=== PATIENT | female | born 1935 | race Caucasian/White ===

== ENCOUNTER 2017-01-04 09:51 | Observation (INO) ==
--- NOTE | 2017-01-04 09:58 | Emergency Department Note ---
Disposition Clinical Impression: Lytic bone lesions on xray, Generalized weakness Disposition: Admitted As Inpatient Condition: Fair Referrals: Cornelius Smith MD [Primary Care Provider] - Forms: Work/School Release, ED Satisfaction Letter Time of Disposition: 12:55 General Adult HPI - General Chief complaint: ED Abdominal Pain Stated complaint: abd pain Time Seen by Provider: 01/04/17 09:53 Source: EMS Mode of arrival: EMS Limitations: no limitations Nursing Notes Reviewed: Yes Vital Signs Reviewed: Yes - History of Present Illness HPI Narrative: 81-year-old who's had a several week history of generalized weakness and some left lower quadrant abdominal pain. Patient was seen by her family doctor yesterday a review of the note indicated that the patient has had PT for this generalized weakness and she is actually gotten worse with respect to the weakness to the point she cannot walk now. She also complains of some left lower quadrant pain that she says is mild in severity. Pt Subjective Complaint: Generalized weakness abdominal pain Onset (ago): week(s) (Several) Location: abdomen Radiation: non-radiation Pain Severity: moderate Pain Scale: 0 Quality: aching Consistency: intermittent Improves with: nothing Worsens with: movement Associated symptoms: Reports: weakness (Generalized). Denies: chest pain, cough , diaphoresis, fever/chills, headaches, nausea/vomiting - Related Data Allergies Allergy/AdvReac Type Severity Reaction Status Date / Time esomeprazole [From Nexium] Allergy Nausea Verified 01/04/17 09:55 Constitutional: Denies: fever, chills, weakness, weight change Eyes: Denies: eye pain, eye discharge, vision change ENT ED: Denies: ear pain, throat pain, dental pain, hearing loss, epistaxis, congestion, dysphagia Cardiovascular: Denies: chest pain, palpitations, dyspnea on exertion, edema, syncope Respiratory: Denies: cough, dyspnea, wheezes, hemoptysis, stridor Gastrointestinal: Reports: abdominal pain. Denies: nausea, vomiting, diarrhea, constipation, hematemesis, melena, hematochezia Genitourinary: Denies: dysuria, frequency, hematuria, discharge Musculoskeletal: Denies: back pain, neck pain, arthralgia, myalgia Integumentary: Denies: rash, abrasion, lesions Neurological: Reports: weakness (Generalized). Denies: headache, numbness, paresthesias, confusion, abnormal gait, vertigo Psychiatric: Denies: anxiety, depression, suicidal thoughts, homicidal thoughts , auditory hallucinations, visual hallucinations Endocrine: Denies: fatigue Hematological/Lymphatic: Denies: easy bleeding, easy bruising Allergic/Immunologic: Denies: facial swelling, urticaria Past Medical History - Past Medical History Medical history: Reports: seizures, other Surgical history: Reports: cholecystectomy, hysterectomy, other Psychiatric history: Reports: anxiety, depression - Social History Smoking Status: Never smoker Smokeless Tobacco Status: No Alcohol use: Reports: none Drug use: Reports: none Physical Exam - General Limitations: no limitations General appearance: alert, in no apparent distress - Head Head exam: atraumatic, normocephalic, normal inspection - Eye Eye exam: Present: normal appearance, PERRL, EOMI - ENT ENT exam: normal exam, normal oropharynx, mucous membranes moist - Neck Neck exam: Present: normal inspection, full ROM, trachea midline - Respiratory Respiratory exam: Present: normal lung sounds bilaterally - Cardiovascular Cardiovascular exam: Present: regular rate, normal rhythm, normal heart sounds - Abdominal Exam Abdominal exam: Present: soft, Non-Tender. Absent: tenderness, distention, guarding, rebound, rigidity - Extremities Exam Extremities exam: Present: normal inspection, full ROM. Absent: tenderness, pedal edema - Expanded Lower Extremity Exam Neurovascular/Tendon exam: Absent: motor deficit, sensory deficit, tendon deficit Gait: not tested/not observed - Back Exam Back exam: Present: normal inspection, full ROM. Absent: tenderness - Neurological Exam Neurological exam: Present: alert, oriented X3. Absent: motor sensory deficit - Psychiatric Psychiatric exam: Present: normal affect, normal mood - Skin Skin exam: Present: warm, dry, intact, normal color Course - Reevaluation(s) Reevaluation #1: Patient comes in with extreme weakness cannot walk does not localize NIH stroke scale is 0 however she's not able to stand up. She does have a lytic lesion on her CT of the head in the skull. Light of her extreme weakness and findings on CT scan we will admit for evaluation. Time: 12:54 - Consultations Consultation #1: I discussed the case with Dr. Hogue who is concerned of possibility of multiple myeloma. Time: 12:53 Consultation #2: Discussed with Dr. Yates, it. Time: 13:15 Vital Signs Temperature 97.5 F L 02/21/17 09:53 Pulse Rate 69 01/04/17 09:53 Respiratory Rate 16 01/04/17 09:53 Blood Pressure 187/87 01/04/17 09:53 O2 Sat by Pulse Oximetry 98 01/04/17 09:53 Temperature 97.5 F L 01/04/17 09:53 Pulse Rate 64 01/04/17 10:47 Respiratory Rate 18 01/04/17 10:47 Blood Pressure 155/62 01/04/17 10:47 O2 Sat by Pulse Oximetry 98 01/04/17 10:47 Oxygen Delivery Oxygen Delivery Room Air Medical Decision Making - Lab Data Lab results reviewed: Yes I reviewed the patient's lab results. Result diagrams: 01/04/17 10:16 01/04/17 10:16 Lab Results 01/04/17 01/04/17 01/04/17 Range/Units 09:57 10:16 10:16 WBC 6.9 (4.3-11.1) K/mcL RBC 4.65 (3.82-4.97) M/mcL Hgb 14.1 (11.5-15.4) g/dL Hct 42.9 (35.3-44.9) % MCV 92.3 (83.0-100.0) fL MCH 30.3 (28.0-33.3) pg MCHC 32.9 (31.6-35.5) g/dL RDW 13.2 (11.5-14.5) % Plt Count 213 (140-400) K/mcL MPV 10.9 (9.4-12.4) fL Immature Gran % 0.3 (0-4) % Seg Neutrophils % 68.1 % Lymphocytes % 23.4 % Monocytes % 6.1 % Eosinophils % 1.5 % Basophils % 0.6 % Neutrophils # 4.7 (1.6-8.9) K/mcL Lymphocytes # 1.6 (0.6-4.6) K/mcL Monocytes # 0.4 (0.0-1.3) K/mcL Eosinophils # 0.1 (0.0-0.6) K/mcL Basophils # 0.0 (0.0-0.2) K/mcL PT 11.2 (9.4-12.1) Seconds INR 1.0 APTT 28.2 (26.0-36.0) Seconds Sodium (136-145) mEq/L Potassium (3.5-4.5) mEq/L Chloride (98-109) mEq/L Carbon Dioxide (19-29) mEq/L BUN (7-20) mg/dL Creatinine (0.57-1.11) mg/dL Est GFR ( Amer) (> 60) Est GFR (Non-Af Amer) (> 60) BUN/Creatinine Ratio (6-26) Glucose (70-99) mg/dL POC Glucose 83 (58-89) Calculated Osmolality (280-300) Lactic Acid (0.5-2.2) mmol/L Calcium (8.6-10.8) mg/dL Total Bilirubin (0.2-1.2) mg/dL Direct Bilirubin (0.0-0.5) mg/dL Indirect Bilirubin (0.0-1.2) mg/dL AST (5-34) Units/L ALT (0-55) Units/L Alkaline Phosphatase (38-126) Units/L Troponin I (0-0.03) ng/mL Serum Total Protein (6.0-8.3) g/dL Albumin (3.5-5.0) g/dL Globulin (2.4-3.5) g/dL Albumin/Globulin Ratio (1.1-2.2) Amylase (25-125) Units/L Lipase (8-78) Units/L Urine Color (Yellow) Urine Clarity (Clear) Urine pH (5.0-8.0) pH Units Ur Specific [place] (1.010-1.025) Urine Protein (Neg-Trace) mg/dL Urine Glucose (UA) (Normal) mg/dL Urine Ketones (Negative) mg/dL Urine Blood (Negative) Urine Nitrite (Negative) Urine Bilirubin (Negative) Urine Urobilinogen (Normal) mg/dL Ur Leukocyte Esterase (Negative) Urine Microscopic RBC (0-3) per hpf Urine Microscopic WBC (0-3) per hpf Ur Squamous Epith Cells (None-Few) per lpf Urine Bacteria (None-Few) per hpf Hyaline Casts (None-Few) per lpf Ur Culture Indicated? (NO) 01/04/17 01/04/17 01/04/17 Range/Units 10:16 10:16 10:16 WBC (4.3-11.1) K/mcL RBC (3.82-4.97) M/mcL Hgb (11.5-15.4) g/dL Hct (35.3-44.9) % MCV (83.0-100.0) fL MCH (28.0-33.3) pg MCHC (31.6-35.5) g/dL RDW (11.5-14.5) % Plt Count (140-400) K/mcL MPV (9.4-12.4) fL Immature Gran % (0-4) % Seg Neutrophils % % Lymphocytes % % Monocytes % % Eosinophils % % Basophils % % Neutrophils # (1.6-8.9) K/mcL Lymphocytes # (0.6-4.6) K/mcL Monocytes # (0.0-1.3) K/mcL Eosinophils # (0.0-0.6) K/mcL Basophils # (0.0-0.2) K/mcL PT (9.4-12.1) Seconds INR APTT (26.0-36.0) Seconds Sodium 141 (136-145) mEq/L Potassium 3.6 (3.5-4.5) mEq/L Chloride 108 (98-109) mEq/L Carbon Dioxide 24 (19-29) mEq/L BUN 22 H (7-20) mg/dL Creatinine 0.74 (0.57-1.11) mg/dL Est GFR ( Amer) > 60 (> 60) Est GFR (Non-Af Amer) > 60 (> 60) BUN/Creatinine Ratio 30 H (6-26) Glucose 98 (70-99) mg/dL POC Glucose (58-89) Calculated Osmolality 295 (280-300) Lactic Acid 0.7 (0.5-2.2) mmol/L Calcium 9.3 (8.6-10.8) mg/dL Total Bilirubin 0.7 (0.2-1.2) mg/dL Direct Bilirubin 0.3 (0.0-0.5) mg/dL Indirect Bilirubin 0.4 (0.0-1.2) mg/dL AST 25 (5-34) Units/L ALT 16 (0-55) Units/L Alkaline Phosphatase 54 (38-126) Units/L Troponin I 0.02 (0-0.03) ng/mL Serum Total Protein 6.5 (6.0-8.3) g/dL Albumin 3.6 (3.5-5.0) g/dL Globulin 2.9 (2.4-3.5) g/dL Albumin/Globulin Ratio 1.2 (1.1-2.2) Amylase 34 (25-125) Units/L Lipase 8 (8-78) Units/L Urine Color (Yellow) Urine Clarity (Clear) Urine pH (5.0-8.0) pH Units Ur Specific [place] (1.010-1.025) Urine Protein (Neg-Trace) mg/dL Urine Glucose (UA) (Normal) mg/dL Urine Ketones (Negative) mg/dL Urine Blood (Negative) Urine Nitrite (Negative) Urine Bilirubin (Negative) Urine Urobilinogen (Normal) mg/dL Ur Leukocyte Esterase (Negative) Urine Microscopic RBC (0-3) per hpf Urine Microscopic WBC (0-3) per hpf Ur Squamous Epith Cells (None-Few) per lpf Urine Bacteria (None-Few) per hpf Hyaline Casts (None-Few) per lpf Ur Culture Indicated? (NO) 01/04/17 Range/Units 12:18 WBC (4.3-11.1) K/mcL RBC (3.82-4.97) M/mcL Hgb (11.5-15.4) g/dL Hct (35.3-44.9) % MCV (83.0-100.0) fL MCH (28.0-33.3) pg MCHC (31.6-35.5) g/dL RDW (11.5-14.5) % Plt Count (140-400) K/mcL MPV (9.4-12.4) fL Immature Gran % (0-4) % Seg Neutrophils % % Lymphocytes % % Monocytes % % Eosinophils % % Basophils % % Neutrophils # (1.6-8.9) K/mcL Lymphocytes # (0.6-4.6) K/mcL Monocytes # (0.0-1.3) K/mcL Eosinophils # (0.0-0.6) K/mcL Basophils # (0.0-0.2) K/mcL PT (9.4-12.1) Seconds INR APTT (26.0-36.0) Seconds Sodium (136-145) mEq/L Potassium (3.5-4.5) mEq/L Chloride (98-109) mEq/L Carbon Dioxide (19-29) mEq/L BUN (7-20) mg/dL Creatinine (0.57-1.11) mg/dL Est GFR ( Amer) (> 60) Est GFR (Non-Af Amer) (> 60) BUN/Creatinine Ratio (6-26) Glucose (70-99) mg/dL POC Glucose (58-89) Calculated Osmolality (280-300) Lactic Acid (0.5-2.2) mmol/L Calcium (8.6-10.8) mg/dL Total Bilirubin (0.2-1.2) mg/dL Direct Bilirubin (0.0-0.5) mg/dL Indirect Bilirubin (0.0-1.2) mg/dL AST (5-34) Units/L ALT (0-55) Units/L Alkaline Phosphatase (38-126) Units/L Troponin I (0-0.03) ng/mL Serum Total Protein (6.0-8.3) g/dL Albumin (3.5-5.0) g/dL Globulin (2.4-3.5) g/dL Albumin/Globulin Ratio (1.1-2.2) Amylase (25-125) Units/L Lipase (8-78) Units/L Urine Color Yellow (Yellow) Urine Clarity Cloudy A (Clear) Urine pH 7.0 (5.0-8.0) pH Units Ur Specific [place] 1.015 (1.010-1.025) Urine Protein Negative (Neg-Trace) mg/dL Urine Glucose (UA) Normal (Normal) mg/dL Urine Ketones Negative (Negative) mg/dL Urine Blood Negative (Negative) Urine Nitrite Negative (Negative) Urine Bilirubin Negative (Negative) Urine Urobilinogen Normal (Normal) mg/dL Ur Leukocyte Esterase Negative (Negative) Urine Microscopic RBC 0-3 (0-3) per hpf Urine Microscopic WBC 0-3 (0-3) per hpf Ur Squamous Epith Cells Few (None-Few) per lpf Urine Bacteria None Seen (None-Few) per hpf Hyaline Casts None Seen (None-Few) per lpf Ur Culture Indicated? NO (NO) - Radiology Data Radiology results reviewed: Yes I reviewed the patient's radiology results. Abdomen/Pelvis CT 01/04/17 09:54 IMPRESSION: Mildly prominent small bowel loops in the left mid abdomen are nonspecific and may indicate enteritis. There is no definite finding of bowel obstruction. No other acute process is suggested D/ / Nain Mendoza MD / Nain Mendoza MD Interpreting Provider: Nain Mendoza MD Head CT 01/04/17 09:54 IMPRESSION: 1. No acute intracranial abnormality. 2. 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 D/ / 01/04/2017 10:45:14 Zack Jack MD / nicolette Interpreting Provider: Zack Jack MD - EKG Data EKG #1 EKG attestation: Yes I reviewed and interpreted this EKG. EKG shows normal: sinus rhythm Rate: normal Rhythm: NSR Interpretation: no acute changes NIH Stroke Scale - Level of Consciousness LOC: Alert - LOC Questions LOC Questions: Answers both correctly - LOC Commands LOC Commands: Performs both correctly - Best Gaze Best Gaze: Normal - Visual Visual: No visual loss - Facial Palsy Facial Palsy: Normal - Motor Arms Motor Arm-Left: No drift for 10 seconds Motor Arm-Right: No drift for 10 seconds - Motor Legs Motor Leg-Left: No drift for 5 seconds Motor Leg-Right: No drift for 5 seconds - Limb Ataxia Limb Ataxia: Normal, No Ataxia - Sensory Sensory: Normal - Best Language Best Language: No aphasia - Dysarthria Dysarthria: Normal - Extinction and Inattention Extinction and Inattention: Normal - NIHSS Total Score NIHSS Total Score: 0 TPA Checklist - Source Information Source: Family - Eligibilty for IV tPA 1. LKW equal to or less than 4.5 hours be before treatment: No - LKW: 3-4.5 hrs Add. Contraindications Patient/family understanding: The patient/family members have been counseled and understood the risk, benefit , and alternatives of treatment.
[2017-01-04 10:27] LABS: Basophils % 0.6 %; Eosinophils # 0.1 K/mcL (0.0-0.6); Eosinophils % 1.5 %; Hematocrit 42.9 % (35.3-44.9); Hemoglobin 14.1 g/dL (11.5-15.4); Immature Granulocytes % 0.3 % (0-4); Lymphocytes # 1.6 K/mcL (0.6-4.6); Lymphocytes % 23.4 %; Mean Corpuscular HGB Conc 32.9 g/dL (31.6-35.5); Mean Corpuscular Hemoglobin 30.3 pg (28.0-33.3); Mean Corpuscular Volume 92.3 fL (83.0-100.0); Mean Platelet Volume 10.9 fL (9.4-12.4); Monocytes # 0.4 K/mcL (0.0-1.3); Monocytes % 6.1 %; Neutrophils # 4.7 K/mcL (1.6-8.9); Platelet Count 213 K/mcL (140-400); Red Blood Count 4.65 M/mcL (3.82-4.97); Red Cell Distribution Width 13.2 % (11.5-14.5); Segmented Neutrophils % 68.1 %
[2017-01-04 10:43] LABS: Alanine Aminotransferase 16 Units/L (0-55); Albumin 3.6 g/dL (3.5-5.0); Albumin/Globulin Ratio 1.2 (1.1-2.2); Alkaline Phosphatase 54 Units/L (38-126); Amylase 34 Units/L (25-125); Aspartate Amino Transferase 25 Units/L (5-34); BUN/Creatinine Ratio 30 (6-26); Bilirubin,Direct 0.3 mg/dL (0.0-0.5); Bilirubin,Indirect 0.4 mg/dL (0.0-1.2); Bilirubin,Total 0.7 mg/dL (0.2-1.2); Blood Urea Nitrogen 22 mg/dL (7-20); Calcium 9.3 mg/dL (8.6-10.8); Carbon Dioxide 24 mEq/L (19-29); Chloride 108 mEq/L (98-109); Globulin 2.9 g/dL (2.4-3.5); Glucose 98 mg/dL (70-99); Lipase 8 Units/L (8-78); Osmolality,Calculated 295 (280-300); Potassium 3.6 mEq/L (3.5-4.5); Sodium 141 mEq/L (136-145); Total Protein 6.5 g/dL (6.0-8.3); eGFR For African Americans > 60 (> 60); eGFR For Non-African Americans > 60 (> 60)
[2017-01-04 10:44] LABS: Prothrombin Time 11.2 Seconds (9.4-12.1)
[2017-01-04 10:47] LABS: Activated Partial Thrombo Time 28.2 Seconds (26.0-36.0)
[2017-01-04 12:34] LABS: Bilirubin,Urine Negative (Negative); Blood,Urine Negative (Negative); Clarity,Urine Cloudy (Clear); Color,Urine Yellow (Yellow); Glucose,Urine (UA) Normal (Normal); Ketones,Urine Negative (Negative); Leukocyte Esterase,Urine Negative (Negative); Nitrite,Urine Negative (Negative); Protein,Urine Negative (Neg-Trace); Specific Gravity,Urine 1.015 (1.010-1.025); Urobilinogen,Urine Normal (Normal)
[2017-01-04 12:38] LABS: Bacteria,Urine None Seen per hpf (None-Few); Hyaline Casts,Urine None Seen per lpf (None-Few); RBC,Urine 0-3 per hpf (0-3); Squamous Epithelial Cell,Urine Few per lpf (None-Few); WBC,Urine 0-3 per hpf (0-3)
[2017-01-04] MEDS ORDERED: Naloxone 0.4 MG/ML INJ IVP PRN (14:12)
[2017-01-04] MEDS ORDERED: Ondansetron 4 MG/2 ML VIAL IVP PRN (14:12)
--- NOTE | 2017-01-04 14:41 | Internal Med History&Physical ---
Date of Encounter: 01/04/17 Time of Encounter: 13:30 Assessment and Plan (1) Lytic bone lesions on xray Current visit: Yes Status: Acute 1 patient's been experiencing increasing weakness. Lytic lesion within the left parietal calvarium has enlarged from 2011 per radiology report. Suspicious for myeloma. We will obtain protein electrophoresis as well as bone scan. 2 consulted oncology (2) Generalized weakness Current visit: Yes Status: Acute 1 this could be multifactorial patient does have history of chronic knee and back pain, as well as suspicion for multiple myeloma. Consulted oncology as well as PT and OT. 2 fall precautions (3) Hypothyroid Current visit: Yes Status: Acute 1 we will obtain TSH continued with Synthroid Qualifiers: Hypothyroidism type: unspecified Qualified Code(s): E03.9 - Hypothyroidism , unspecified (4) DVT prophylaxis Current visit: Yes Status: Acute 1 FELIBERTO trey (5) Occasional tremors Current visit: Yes Status: Acute 1 she has been experiencing tremors off and on for the past few months. She has an appointment with neurology as an outpatient. We will continue with present follow-up and consult neurology as needed. Internal Medicine - H&P: HPI Chief complaint: weakness of lower extremities Admitted From: Emergency Dept Plans for Post Hospital Care: Home History of present illness: Ms. Leon is a 81 year old female past medical history of hypothyroid, seizure , tremors heart disease polymyalgia rheumatica. According to the patient she has been in her usual state of health. She has been experiencing increasing weakness to her lower extremities over the past few months which they attributed to her knee and back pain. She commonly uses a cane to get around however over the past 3 weeks she has been working with physical therapy and transitioning to a walker. According to the family the patient has her good days and bad days where she is more weak and has difficulty ambulating as well as a noticed a softer voice. Today the patient did get up proxy 5:30 this morning to go to the bathroom without difficulty however by 8 AM patient was unable to get out of bed and stand. She was brought to the emergency room for evaluation. In the ER CT of head/brain without contrast did reveal 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 which had enlarged from previous CT in 2011. Lab work was unremarkable as well as EKG and chest x-ray. Patient continued to be unable to stand on her own and she has been admitted for further workup and evaluation. At present time patient is alert oriented following simple commands. It is noted that her voice is very soft she denies any sore throat. Neuro exam is within normal limits extremities 4 with strength 4/5. Cranial nerves II through XII intact. The family states patient has lost approximately 5 pounds in the past week. She denies any fevers chills nausea vomiting chest pain. She did have some abdominal pain upon presentation to the ER however denied any during assessment. She also did have some loose stool last week for 24 hours which resolved on its own. She also admits to some numbness and tingling to her lower extremities. At present time patient is hemodynamically stable.I have reviewed this case with DR Yates who agrees with plan Past Med Surg Social Fam HX - Past Medical History Medical history: seizures, other Psychiatric history: anxiety, depression - Past Surgical History Surgical History: cholecystectomy, hysterectomy, other - Social History Smoking Status: Never smoker Smokeless Tobacco Status: No Alcohol use: none Drug use: none Internal Medicine - H&P: Meds Aspirin 81 mg PO DAILY 01/04/17 [History] Docusate Sodium [Dok] 100 mg PO DAILY PRN 01/04/17 [History] Escitalopram Oxalate 5 mg PO DAILY 01/04/17 [History] Levothyroxine Sodium 100 mcg PO DAILY 01/04/17 [History] Multivit-Min/FA/Lycopen/Lutein [Centrum Silver Tablet] 1 each PO DAILY 01/04/17 [History] Polyethylene Glycol 3350 [MiraLAX] 17 gm PO DAILY PRN 01/04/17 [History] Allergies esomeprazole [From Nexium] Allergy (Verified 01/04/17 09:55) Nausea All Systems PM: A 10-system review of systems was performed and is negative for pertinent findings except as documented above in the HPI. - Constitutional Constitutional: weight loss - EENT Eyes: no change in vision, no discharge, no pain, no photophobia Nose, mouth and throat: change in voice - Cardiovascular Cardiovascular ROS IM: no chest pain, no diaphoresis, no dyspnea, no lightheadedness, no palpitations, no syncope - Respiratory Respiratory: no cough, no dyspnea, no wheezing, no excessive phlegm production - Gastrointestinal Gastrointestinal: abdominal pain, loose stools - Genitourinary Genitourinary: no change in urinary stream, no dysuria, no flank pain, no hematuria - Musculoskeletal Musculoskeletal ROS IM: muscle weakness, numbness, tingling - Neurological Neurological ROS: weakness - Constitutional Vitals: Temp Pulse Resp BP Pulse Ox 97.5 F L 76 16 162/79 95 01/04/17 09:53 01/04/17 13:42 01/04/17 14:30 01/04/17 14:30 01/04/17 13:42 General appearance: Present: A&O X 3, answers questions appropriately Exam: Patient speaks in a whisper - Head Head exam: Present: atraumatic, normocephalic - Eye Eye exam: Present: PERRL, conjuntiva pink, sclera anicteric Pupils: Present: PERRL - Neck Neck exam general surgery: Present: supple, trachea midline. Absent: lymphadenopathy - Respiratory Respiratory exam: Present: CTAB. Absent: accessory muscle use, rales, rhonchi, wheezes - Cardiovascular Cardiovascular exam: Present: RRR, +S1, +S2. Absent: diastolic murmur, gallop, rubs, systolic murmur - GI/Abdominal GI/Abdominal exam: Present: normal bowel sounds, soft, no peritoneal signs. Absent: distended, tenderness - Extremities Exam Extremities exam: Present: warm, radial pulses palpable and symetrical. Absent : calf tenderness, cyanotic, pedal edema - Neurological Exam Neurological exam: Present: CN II-XII intact, oriented X3, no focal deficits. Absent: pronater drift, facial droop, speech deficit Internal Med - H&P Results - Labs CBC & Chem 7: 01/04/17 10:16 01/04/17 10:16 - EKG Data EKG shows normal: sinus rhythm, ST-T waves - EKG Data Prior EKG available for review: no - Diagnostic Studies CT scan - head Additional comments: Per radiology read no acute intracranial abnormality. Lytic lesion within the left parietal calvarium has enlarged from 2011 revealing suspicious for metastasis given the abnormal uptake on prior bone scan. CT scan - abdomen Additional comments: Per radiology read mildly prominent small bowel loops in the left mid abdomen are nonspecific and may indicate enteritis. There is no definite finding of bowel obstruction. No other acute products also suggested
[2017-01-05 04:23] LABS: Basophils % 0.6 %; Eosinophils # 0.2 K/mcL (0.0-0.6); Eosinophils % 2.3 %; Hematocrit 41.8 % (35.3-44.9); Hemoglobin 13.7 g/dL (11.5-15.4); Immature Granulocytes % 0.1 % (0-4); Lymphocytes # 1.7 K/mcL (0.6-4.6); Lymphocytes % 24.7 %; Mean Corpuscular HGB Conc 32.8 g/dL (31.6-35.5); Mean Corpuscular Hemoglobin 30.2 pg (28.0-33.3); Mean Corpuscular Volume 92.1 fL (83.0-100.0); Monocytes # 0.5 K/mcL (0.0-1.3); Monocytes % 7.7 %; Neutrophils # 4.5 K/mcL (1.6-8.9); Platelet Count 183 K/mcL (140-400); Red Blood Count 4.54 M/mcL (3.82-4.97); Red Cell Distribution Width 13.1 % (11.5-14.5); Segmented Neutrophils % 64.6 %
[2017-01-05 04:39] LABS: BUN/Creatinine Ratio 34 (6-26); Blood Urea Nitrogen 25 mg/dL (7-20); Calcium 9.1 mg/dL (8.6-10.8); Carbon Dioxide 24 mEq/L (19-29); Chloride 108 mEq/L (98-109); Glucose 102 mg/dL (70-99); Osmolality,Calculated 297 (280-300); Potassium 3.5 mEq/L (3.5-4.5); Sodium 141 mEq/L (136-145); eGFR For African Americans > 60 (> 60); eGFR For Non-African Americans > 60 (> 60)
[2017-01-05] MEDS: Acetaminophen 325 MG TABLET PO PRN (06:40)
[2017-01-05] MEDS ORDERED: *HR* Morphine 2 MG/ML SYRINGE IVP PRN (08:12)
[2017-01-05] MEDS: Multivit/Ca/Min/Fe/FA 1 TAB TABLET PO SCH (08:48)
[2017-01-05] MEDS: Aspirin 81 MG TAB.CHEW PO SCH (08:53)
--- NOTE | 2017-01-05 14:56 | Internal Med Progress Note ---
Date of Encounter: 01/05/17 Time of Encounter: 10:00 - Assessment and plan (1) Generalized weakness Current Visit: Yes Status: Acute Assessment and plan: OT and PT are on board. Causation of her generalized weakness is unclear at this time. No focal neurological weakness is present on examination the patient was unable to change positions in bed or to feed herself without assistance. No tremors present on examination. Destaticizer Feeder strength equal. Postpolio : Bilateral legs. Suspect possible secondary gain and attention seeking behavior. Spoke to the patient's sister outside of the room he states that the patient was in occupational and physical therapy and when she was told that she would be graduating from therapy, she started to decline and state that she was too weak to walk. Her sister also states that "if she had her way, she'd lay and watch TV all day and me and my would do everything for her." During my interaction with her, patient asked if I could reposition her in the bed several times. She also asked for assistance with drinking, feeding, and pulling up her covers. She appears physically able to perform these tasks independently, but is choosing noted to do so. She did have a PET CT in September of this past year and she was seen by her health care coach shortly thereafter. I cannot find any documentation of her seeing a primary care provider for the PET/CT results. PET/CT appears unremarkable, oncology on board, appreciate their recommendations. Head CT negative for acute process and revealing a lytic lesion in the left parietal calvarium, oncology on board. Bone survey unremarkable. ITS Impressions Abdomen/Pelvis CT 01/04/17 09:54 IMPRESSION: Mildly prominent small bowel loops in the left mid abdomen are nonspecific and may indicate enteritis. There is no definite finding of bowel obstruction. No other acute process is suggested D/ / Nain Mendoza MD / Nain Mendoza MD Interpreting Provider: Nain Mendoza MD Head CT 01/04/17 09:54 IMPRESSION: 1. No acute intracranial abnormality. 2. 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 D/ / 01/04/2017 10:45:14 Zack Jack MD / [facility] Interpreting Provider: Zack Jack MD Bone Osseous Survey 01/04/17 14:31 IMPRESSION: 1. Solitary left posterior parietal 2.9 cm lytic calvarial lesion which corresponds with the prior head CT. There are no disseminated osseous lytic lesions. 2. Decreased bone mineral density. Multilevel spine degenerative changes. No acute osseous abnormality. D/ / 01/05/2017 06:04:58 Angelito Cheney MD / [facility] Interpreting Provider: Angelito Cheney MD /PET CT fusion skull to thigh impression from 10/06/16: Minimal metabolic activity associated with left upper lobe pulmonary nodule, stable and CT appearance since 02/26/16. This could represent an infectious/inflammatory process or possibly low-grade neoplasm. No definite metabolic activity localizing to a soft tissue prominence along the upper pole of the left kidney which may represent a proteinaceous cyst. Consider further evaluation of this with a CT scan of the abdomen with and without contrast or MRI of the kidneys with and without contrast to ensure no enhancing mass. (2) Abnormal head CT Current Visit: Yes Status: Acute (3) Occasional tremors Current Visit: Yes Status: Chronic Assessment and plan: none noted on examination; Onc onboard (4) Dependent for activity Current Visit: Yes Status: Suspected (5) Abdominal pain Current Visit: Yes Status: Acute Assessment and plan: Patient currently denies abdominal pain. Abdominal CT unremarkable as her physical examination is not consistent with enteritis. Tolerating regular diet. On examination, abdomen soft, nondistended with positive bowel sounds. No tenderness. ITS Impressions Abdomen/Pelvis CT 01/04/17 09:54 IMPRESSION: Mildly prominent small bowel loops in the left mid abdomen are nonspecific and may indicate enteritis. There is no definite finding of bowel obstruction. No other acute process is suggested D/ / Nain Mendoza MD / Nain Mendoza MD Interpreting Provider: Nain Mendoza MD Qualifiers: Abdominal location: generalized Qualified Code(s): R10.84 - Generalized abdominal pain (6) DVT prophylaxis Current Visit: Yes Status: Acute Assessment and plan: Subcutaneous Lovenox ordered (7) Hypothyroid Current Visit: Yes Status: Chronic Assessment and plan: TSH normal Qualifiers: Hypothyroidism type: unspecified Qualified Code(s): E03.9 - Hypothyroidism , unspecified - Time Spent With Patient Greater than 35 minutes (chart review and interviewing patient and family) - Subjective Interval history: Patient seen and examined. On examination, patient alert and oriented x3 and complained of severe pain to her back. She states she started with a "knot" in her back yesterday. She denies dysuria. She states she still feels weak. She is requesting assistance repositioning her in the bed and she is also requesting assistance eating her breakfast. - Constitutional Vitals: Temp Pulse Resp BP Pulse Ox 97.6 F 73 15 146/78 97 01/05/17 11:47 01/05/17 11:47 01/05/17 11:47 01/05/17 11:47 01/05/17 11:47 General appearance: Present: A&O X 3, pleasant, no acute distress, answers questions appropriately - Head Head exam: Present: atraumatic, normocephalic - Eye Eye exam: Present: PERRL, conjuntiva pink, sclera anicteric Pupils: Present: PERRL - Neck Neck exam general surgery: Present: supple, trachea midline. Absent: lymphadenopathy - Respiratory Respiratory exam: Present: CTAB. Absent: accessory muscle use, rales, respiratory distress, rhonchi, wheezes - Cardiovascular Cardiovascular exam: Present: RRR, +S1, +S2. Absent: diastolic murmur, gallop, rubs, systolic murmur - GI/Abdominal GI/Abdominal exam: Present: normal bowel sounds, soft, no peritoneal signs. Absent: distended, tenderness - Extremities Exam Extremities exam: Present: warm, radial pulses palpable and symetrical. Absent : calf tenderness, cyanotic, pedal edema - Back Exam Back exam: Present: muscle spasm, paraspinal tenderness - Neurological Exam Neurological exam: Present: alert, CN II-XII intact, oriented X3, no focal deficits, strengths equal and symetr throughout. Absent: pronater drift, facial droop, speech deficit - Skin Skin exam: Present: dry, intact, pallor, warm Internal Medicine: Result - Labs CBC & Chem 7: 01/05/17 03:51 01/05/17 03:51 Labs: Short CBC 01/05/17 Range/Units 03:51 WBC 7.0 (4.3-11.1) K/mcL Hgb 13.7 (11.5-15.4) g/dL Hct 41.8 (35.3-44.9) % Plt Count 183 (140-400) K/mcL Neutrophils # 4.5 (1.6-8.9) K/mcL BMP 01/05/17 03:51 Sodium 141 Potassium 3.5 Chloride 108 Carbon Dioxide 24 BUN 25 H Creatinine 0.73 Glucose 102 H Calcium 9.1 - ABG Interpretation ABG results: PT/INR, D-dimer PT 11.2 Seconds (9.4-12.1) 01/04/17 10:16 - Impressions Impressions Bone Osseous Survey 01/04/17 14:31 IMPRESSION: 1. Solitary left posterior parietal 2.9 cm lytic calvarial lesion which corresponds with the prior head CT. There are no disseminated osseous lytic lesions. 2. Decreased bone mineral density. Multilevel spine degenerative changes. No acute osseous abnormality. D/ / 01/05/2017 06:04:58 Angelito Cheney MD / [email or web address] Interpreting Provider: Angelito Cheney MD Consult Discharge Plan - Plan Referrals: Cornelius Smith MD [Primary Care Provider] -
[2017-01-05] MEDS: *HR* HYDROcodone/Acet 5/325 mg TABLET PO PRN (17:34)
[2017-01-06] MEDS: *HR* Enoxaparin 40 MG/0.4 ML SYRINGE SQ SCH (06:30)
[2017-01-06] MEDS: *HR* HYDROcodone/Acet 5/325 mg TABLET PO PRN (06:41)
[2017-01-06] MEDS: Multivit/Ca/Min/Fe/FA 1 TAB TABLET PO SCH (08:21)
[2017-01-06] MEDS: Aspirin 81 MG TAB.CHEW PO SCH (08:21)
--- NOTE | 2017-01-06 14:50 | Oncology Inp Consult Note ---
Date of Encounter: 01/05/17 Time of Encounter: 19:00 Assessment and Plan (1) Generalized weakness Status: Acute Assessment and plan: Generalized weakness is concerning. She may benefit from neurology opinion. Her nor MRI brain with and without contrast That will evaluate the lytic lesion in the parietal bone is well (2) Lytic bone lesions on xray Status: Acute Assessment and plan: Currently no evidence to suggest multiple myeloma. The lesion does not appear to have the characteristic of plasmacytoma either. Discussed at the tumor board on 01/06/2017. Given that it dids not increase that much since 2010, favor a benign etiology. There is also no evidence of systemic malignancy. CT abdomen and pelvis negative during this admission. Left lung nodule has been stable as mentioned. If necessary repeat CT chest MRI brain with and without contrast should evaluate that better and may give a clue on her generalized weakness - Data of Consult Requesting Physician: Lucero Carl Primary Care Provider: Cornelius Smith MD - Consult Narrative Reason for consult: Lytic lesion left parietal bone History of present illness: Ms. Leon is a 81 year old female admitted with increasing weakness. He has no focal deficit but feels weak all over. He claims she moved in with her sister one year ago because she could not maintain independent living. But she is able to function at that time and in the last 2 months or so which even hard for her to walk. She is mentally very competent and able to answer questions She is on sign of metastases and may have underlying Parkinson's disease. No obvious tremors Oncology consulted because of enlarging lytic type lesion left posterior parietal bone 2.[address] chest during this admission. I compared this to the CAT scan done on 2010 and at that time she had the same lesion but slightly smaller She has a bone survey 01/04/2017 which did not show any other lesion Multiple myeloma has to be ruled out. No CRAB criteria. The normal at 13.7 glucose 102. Creatinine 0.73 calcium 9.1 She had a left pleural based 1.2 cm lung nodule followed by Dr. Chino. PET scan 09/17/2016 did not show major uptake in that nodule. Has been stable since February 2016. That spot was biopsied under CT guidance on 03/23/2016 collagen showed fibrous tissue and lung parenchyma but no malignancy PET scan also showed left kidney proteinaceous cyst with no major PET uptake. This was reviewed at the tumor board on 01/06/2017 TT abdomen and pelvis negative 01/04/2017 for malignant process Serum protein electrophoresis and light chains pending but globulin normal at 2.9. Past Med Surg Social Fam HX - Past Medical History Medical history: seizures, other Psychiatric history: anxiety, depression - Past Surgical History Surgical History: cholecystectomy, hysterectomy, other - Social History Smoking Status: Never smoker Smokeless Tobacco Status: No Alcohol use: none Drug use: none - Family History Father Hx Family Cardiac Disorders: Yes Brother Hx Family Cancer: Yes (lung Ca) Medications and Allergies Aspirin 81 mg PO DAILY 01/04/17 [History] Docusate Sodium [Dok] 100 mg PO DAILY PRN 01/04/17 [History] Escitalopram Oxalate 5 mg PO DAILY 01/04/17 [History] Levothyroxine Sodium 100 mcg PO DAILY 01/04/17 [History] Multivit-Min/FA/Lycopen/Lutein [Centrum Silver Tablet] 1 each PO DAILY 01/04/17 [History] Polyethylene Glycol 3350 [MiraLAX] 17 gm PO DAILY PRN 01/04/17 [History] Allergies esomeprazole [From Nexium] Allergy (Verified 01/04/17 09:55) Nausea Review of systems: In increased generalized weakness is the main complaint but no focal neurological deficit. Oncology - Exam - Constitutional Vitals: Temp Pulse Resp BP Pulse Ox 97.8 F 75 16 128/79 95 01/06/17 11:59 01/06/17 11:59 01/06/17 11:59 01/06/17 11:59 01/06/17 11:59 General appearance: no acute distress Exam: GENERAL: Alert and oriented, well appearing. Mental Status: Affect appropriate for circumstances HEENT: Sclerae anicteric. No mucositis or thrush. No other oral or pharyngeal lesions or erythema. Skin: No rashes or petechiae. No evidence of skin malignancy Lymph nodes: No cervical, supraclavicular, axillary, or inguinal adenopathy. Lungs: Clear to auscultation and percussion bilaterally. Cardiovascular: Regular rate and rhythm. No gallops, murmurs, or rubs. Abdomen: Soft, nontender; no organomegaly or masses palpable. Extremities: No edema. No calf swelling or tenderness. No joint deformity. Neurologic: Alert, cranial nerves II-XII intact;; no focal weakness or sensory abnormalities. She does have mild weakness both lower extremities Upper extremity strength seems to be okay but she does have trouble walking by history [id number] coordination normal and no major tremors Consult Discharge Plan - Plan Referrals: Cornelius Smith MD [Primary Care Provider] -
--- NOTE | 2017-01-06 15:17 | Physician Discharge Referral ---
ExtendedCare Referral Info Transfer To: [facility] Provider in Charge after Transfer: PCP Institutional Level of Care: Skilled - Diagnosis (1) Parkinson disease Priority: Primary Status: Acute (2) Generalized weakness Priority: Primary Status: Acute (3) Lytic bone lesions on xray Priority: Secondary Status: Acute Expected Duration of Placement: less than 30 days Prognosis: Good Aware of Diagnosis: Patient Aware of Prognosis: Patient - Transfer Medications Prescriptions: Buspirone HCl [Buspar] 7.5 mg PO BID PRN #60 tablet PRN Reason: Anxiety Carbidopa/Levodopa 10/100 [Sinemet 10/100] 1 each PO TID #90 tablet Home Medications: Aspirin 81 mg PO DAILY 01/04/17 [History] Docusate Sodium [Dok] 100 mg PO DAILY PRN 01/04/17 [History] Escitalopram Oxalate 5 mg PO DAILY 01/04/17 [History] Levothyroxine Sodium 100 mcg PO DAILY 01/04/17 [History] Multivit-Min/FA/Lycopen/Lutein [Centrum Silver Tablet] 1 each PO DAILY 01/04/17 [History] Polyethylene Glycol 3350 [MiraLAX] 17 gm PO DAILY PRN 01/04/17 [History] Buspirone HCl [Buspar] 7.5 mg PO BID PRN #60 tablet 01/06/17 [Rx] Carbidopa/Levodopa 10/100 [Sinemet 10/100] 1 each PO TID #90 tablet 01/06/17 [Rx ] Allergies/Adverse Reactions: Allergies esomeprazole [From Nexium] Allergy (Verified 01/04/17 09:55) Nausea - Respiratory Orders Smoking Cessation: Smoking cessation has been advised. For more information, call the [place] Tobacco Quit Line at 2-832-QKIP-NOW. - Mobility Orders Ambulate - Rehabiliation Orders Rehab Orders: Evaluation for Physical Therapy, Evaluation for Occupational Therapy - Diet Orders Regular CERTIFICATION: I certify that the transfer of the above named patient to an Extended Care Facility is necessary for the continuing treatment of the diagnosis listed. The above information is true and accurate reflection of patient's current condition. Confidential - Redisclosure prohibited without a patient's written consent.
--- NOTE | 2017-01-06 16:23 | Internal Med Progress Note ---
Date of Encounter: 01/06/17 Time of Encounter: 11:45 - Assessment and plan (1) Parkinson disease Current Visit: Yes Status: Acute (2) Generalized weakness Current Visit: Yes Status: Acute (3) Lytic bone lesions on xray Current Visit: Yes Status: Acute - Time Spent With Patient Plan Appreciate oncology input, no evidence of malignancy, awaiting results for MRI brain , I was able to walk with patient with assistance physical therapy. Patient had shuffling gait, freezing episode,static tremors,cog wheel rigidity, will start Sinemet as diagnostic and therapeutic trial. Discussed with Rehab team , will reevaluate , will add Buspar as augmenting agent for SSRI. 25 - 35 minutes - Subjective Interval history: atient complains of generalized weakness, shuffling gait,is static tremors, feeling of falling, patient feels down - Constitutional Vitals: Temp Pulse Resp BP Pulse Ox 97.8 F 75 16 128/79 95 01/06/17 11:59 01/06/17 11:59 01/06/17 11:59 01/06/17 11:59 01/06/17 11:59 General appearance: Present: pleasant, no acute distress, answers questions appropriately - Neck Neck exam general surgery: Present: supple, trachea midline. Absent: lymphadenopathy - Respiratory Respiratory exam: Present: CTAB. Absent: accessory muscle use, rales, rhonchi, wheezes - Cardiovascular Cardiovascular exam: Present: RRR, +S1, +S2. Absent: diastolic murmur, gallop, rubs, systolic murmur - Extremities Exam Extremities exam: Present: warm, radial pulses palpable and symetrical. Absent : calf tenderness, cyanotic, pedal edema - Neurological Exam Neurological exam: Present: CN II-XII intact, oriented X3, no focal deficits. Absent: pronater drift, facial droop, speech deficit Internal Medicine: Result - Labs CBC & Chem 7: 01/05/17 03:51 01/05/17 03:51 - ABG Interpretation ABG results: PT/INR, D-dimer PT 11.2 Seconds (9.4-12.1) 01/04/17 10:16 - VTE Documentation of Mechanical Device: Intermittent pneumatic compression device Consult Discharge Plan - Plan Referrals: Cornelius Smith MD [Primary Care Provider] - Prescriptions: Buspirone HCl [Buspar] 7.5 mg PO BID PRN #60 tablet PRN Reason: Anxiety Carbidopa/Levodopa [Sinemet ] 1 each PO TID #90 tablet
[2017-01-07] MEDS: *HR* Enoxaparin 40 MG/0.4 ML SYRINGE SQ SCH (06:11)
--- NOTE | 2017-01-07 06:58 | Electrocardiograph Report ---
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
--- NOTE | 2017-01-07 08:58 | Internal Med Progress Note ---
Date of Encounter: 01/07/17 Time of Encounter: 07:45 - Assessment and plan (1) Parkinson disease Current Visit: Yes Status: Acute (2) Generalized weakness Current Visit: Yes Status: Acute (3) Lytic bone lesions on xray Current Visit: Yes Status: Acute - Time Spent With Patient mild improvement with starting small dose of Aricept. We will consult neurology for further evaluation. Continue physical therapy and occupational therapy. awaiting results of vitamin B12 and vitamin D. Possible discharge in next 24 hours attending awaiting Neurology input.check magnesium and potassium phosphorus 25 - 35 minutes - Subjective Interval history: patient continued to have trouble with walking,has freezing episodes, fear of falling. Patient denies any pain. Patient was able to stand and walk a few steps. Shuffling gait, static tremors better than yest - Constitutional Vitals: Temp Pulse Resp BP Pulse Ox 97.5 F L 68 15 143/96 98 01/07/17 06:45 01/07/17 06:45 01/07/17 06:45 01/07/17 06:45 01/07/17 06:45 General appearance: Present: A&O X 3, pleasant, no acute distress, answers questions appropriately - Head Head exam: Present: atraumatic, normocephalic - Neck Neck exam general surgery: Present: supple, trachea midline. Absent: lymphadenopathy - Respiratory Respiratory exam: Present: CTAB. Absent: accessory muscle use, rales, rhonchi, wheezes - Cardiovascular Cardiovascular exam: Present: RRR, +S1, +S2. Absent: diastolic murmur, gallop, rubs, systolic murmur - GI/Abdominal GI/Abdominal exam: Present: normal bowel sounds, soft, no peritoneal signs. Absent: distended, tenderness - Extremities Exam Extremities exam: Present: warm. Absent: cyanotic, pedal edema - Neurological Exam Neurological exam: Present: abnormal gait, CN II-XII intact, oriented X3, no focal deficits. Absent: pronater drift, facial droop, speech deficit Internal Medicine: Result - Labs CBC & Chem 7: 01/05/17 03:51 01/05/17 03:51 - ABG Interpretation ABG results: PT/INR, D-dimer PT 11.2 Seconds (9.4-12.1) 01/04/17 10:16 - Impressions Impressions Head MRI 01/06/17 15:22 IMPRESSION: 1. No acute intracranial abnormality. 2. Moderate chronic white matter microvascular ischemic changes. 3. 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 Marginal enhancement as seen in this lesion can be seen in large arachnoid granulations, however the enlargement in a patient of this age is somewhat atypical and malignancy cannot be completely excluded. Recommend follow-up brain MRI in 6 months to 1 year to ensure stability. D/ / Cornelius Fitzgerald MD / Cornelius Fitzgerald MD Interpreting Provider: Cornelius Fitzgerald MD - VTE Documentation of Mechanical Device: Graduated compression elastic hosiery Consult Discharge Plan - Plan Referrals: Cornelius Smith MD [Primary Care Provider] - Prescriptions: Buspirone HCl [Buspar] 7.5 mg PO BID PRN #60 tablet PRN Reason: Anxiety Carbidopa/Levodopa 10/100 [Sinemet 10/100] 1 each PO TID #90 tablet Impression 1) Normal left ventricular size and systolic function. LVEF 60%. All myocardial segments display normal contractility. Late gadolinium enhancement imaging demonstrates normal myocardium. 2) Normal right ventricular size and systolic function. 3) No significant valvular dysfunction. 4) Non-cardiac structures visualized during this study will be independently reviewed by a radiologist. Please see the separate radiology report for details.
[2017-01-07] MEDS: Aspirin 81 MG TAB.CHEW PO SCH (09:53)
[2017-01-07] MEDS: Multivit/Ca/Min/Fe/FA 1 TAB TABLET PO SCH (09:53)
[2017-01-07 10:00] LABS: BUN/Creatinine Ratio 24 (6-26); Blood Urea Nitrogen 18 mg/dL (7-20); Calcium 9.4 mg/dL (8.6-10.8); Carbon Dioxide 24 mEq/L (19-29); Chloride 107 mEq/L (98-109); Glucose 129 mg/dL (70-99); Magnesium 1.8 mg/dL (1.6-2.6); Osmolality,Calculated 294 (280-300); Phosphorous 2.5 mg/dL (2.3-4.7); Potassium 3.9 mEq/L (3.5-4.5); Sodium 140 mEq/L (136-145); eGFR For African Americans > 60 (> 60); eGFR For Non-African Americans > 60 (> 60)
[2017-01-07] MEDS: Thiamine (B-1) 100 MG TABLET PO SCH (10:05)
[2017-01-07] MEDS: Acetaminophen 325 MG TABLET PO PRN (10:05)
--- NOTE | 2017-01-07 10:10 | Physician Discharge Referral ---
ExtendedCare Referral Info Provider in Charge after Transfer: PCP Institutional Level of Care: Intermediate - MR - Diagnosis (1) Parkinson disease Status: Acute (2) Generalized weakness Priority: Secondary Status: Acute (3) Lytic bone lesions on xray Priority: Secondary Status: Acute Prognosis: Good Aware of Diagnosis: Patient Aware of Prognosis: Patient - Transfer Medications Prescriptions: Buspirone HCl [Buspar] 7.5 mg PO BID PRN #60 tablet PRN Reason: Anxiety Carbidopa/Levodopa 10/100 [Sinemet 10/100] 1 each PO TID #90 tablet Home Medications: Aspirin 81 mg PO DAILY 01/04/17 [History] Docusate Sodium [Dok] 100 mg PO DAILY PRN 01/04/17 [History] Escitalopram Oxalate 5 mg PO DAILY 01/04/17 [History] Levothyroxine Sodium 100 mcg PO DAILY 01/04/17 [History] Multivit-Min/FA/Lycopen/Lutein [Centrum Silver Tablet] 1 each PO DAILY 01/04/17 [History] Polyethylene Glycol 3350 [MiraLAX] 17 gm PO DAILY PRN 01/04/17 [History] Buspirone HCl [Buspar] 7.5 mg PO BID PRN #60 tablet 01/06/17 [Rx] Carbidopa/Levodopa 10/100 [Sinemet 10/100] 1 each PO TID #90 tablet 01/06/17 [Rx ] Allergies/Adverse Reactions: Allergies esomeprazole [From Nexium] Allergy (Verified 01/04/17 09:55) Nausea - Respiratory Orders Smoking Cessation: Smoking cessation has been advised. For more information, call the [place] Tobacco Quit Line at 5-081-RMHX-NOW. - Rehabiliation Orders Rehab Orders: Evaluation for Physical Therapy, Evaluation for Occupational Therapy CERTIFICATION: I certify that the transfer of the above named patient to an Extended Care Facility is necessary for the continuing treatment of the diagnosis listed. The above information is true and accurate reflection of patient's current condition. Confidential - Redisclosure prohibited without a patient's written consent.
[2017-01-07 11:20] LABS: Kappa Qnt Free Light Chains 1.8 mg/dL (0.33-1.94); Lambda Qnt Free Light Chains 1.21 mg/dL (0.57-2.63)
--- NOTE | 2017-01-07 16:05 | Electrocardiograph Report ---
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
--- NOTE | 2017-01-07 16:08 | Neurology - Consult Note ---
Date of Encounter: 01/07/17 Time of Encounter: 16:08 Assessment and Plan (1) Parkinson disease Current Visit: Yes Status: Acute Agree that the patient has some atypical features of Parkinson's disease, mainly in the form of increased muscle tone, diffusely, without unilateral preference. I did not notice any unilateral rest tremors although shaking was mentioned as one of her complaint. Plus, she did not respond to dopa therapy favorably. Symptoms appear acute onset which is also not typical for Idiopathic Parkinson's disease. (2) Difficulty walking Current Visit: Yes Status: Acute So, with the impression that she does have atypical Parkinson's features not responding to dopa therapy, with the findings of brisk DTRs, muscle rigidity, bilateral leg weakness, and difficulty walking, another consideration would be cervical myelopathy. I saw no signs of ALS or other motor neuron disease. spastic spinal paraplegia can give similar presentation but is a diagnosis of exclusion. Will obtain MRI of cervical spine without contrast. Patient is to get PT and gait training He is to follow up with Dr. Tl Tomlinson as scheduled. History of Present Illness Chief complaint: difficulty walking HPI: Ms. Leon is a 81 year old female with PMH significant for HTN, GERD, hyperlipidemia and possible Parkinson's disease who is consulted regarding acute onset of difficulty walking weakness in her legs, and possible Parkinson' s disease. Patient says that she she saw her PCP on Tuesday due to weakness not helped from PT and she was also referred to Dr. Tl Tomlinson for evaluation for possible Parkinson's disease. She says that she does have some difficulty walking that has been going on for quite a while. She has some shakings going on but i saw no unilateral tremors at the bed side. She says that on Tuesday she woke up and she could not get out of bed. She did not feel that she is getting better. She has taken carbidopa/levodopa for few days and that does not seem to help her. Unable to stand up without assistance. Able to move with struggle and scare tiny steps. Past Med Surg Social Fam HX - Past Medical History Medical history: seizures, other Psychiatric history: anxiety, depression - Past Surgical History Surgical History: cholecystectomy, hysterectomy, other - Social History Smoking Status: Never smoker Smokeless Tobacco Status: No Alcohol use: none Drug use: none - Family History Father Hx Family Cardiac Disorders: Yes Brother Hx Family Cancer: Yes (lung Ca) Medications and Allergies Aspirin 81 mg PO DAILY 01/04/17 [History] Docusate Sodium [Dok] 100 mg PO DAILY PRN 01/04/17 [History] Escitalopram Oxalate 5 mg PO DAILY 01/04/17 [History] Levothyroxine Sodium 100 mcg PO DAILY 01/04/17 [History] Multivit-Min/FA/Lycopen/Lutein [Centrum Silver Tablet] 1 each PO DAILY 01/04/17 [History] Polyethylene Glycol 3350 [MiraLAX] 17 gm PO DAILY PRN 01/04/17 [History] Buspirone HCl [Buspar] 7.5 mg PO BID PRN #60 tablet 01/06/17 [Rx] Carbidopa/Levodopa 10/100 [Sinemet 10/100] 1 each PO TID #90 tablet 01/06/17 [Rx ] Allergies esomeprazole [From Nexium] Allergy (Verified 01/04/17 09:55) Nausea All Systems: A 10-system review of systems was performed and is negative for pertinent findings except as documented above in the HPI. Physical Examination - Vital Signs Vital Signs: Initial Vital Signs Temp Pulse Resp BP Pulse Ox 97.5 F L 69 16 187/87 98 01/04/17 09:53 01/04/17 09:53 01/04/17 09:53 01/04/17 09:53 01/04/17 09:53 - Constitutional General appearance: comfortable - Neurologic Sensorimotor examination: intact Detailed motor examination: grossly full strength in all extremities, other ( The weakness in legs, only manifest when she tried to get up and has diffiuclty getting up without support. Able to maintain posture but unable to able, except small steps) Motor examination - right side: 5/5: deltoids, biceps, triceps, wrist flexion, wrist extension, stacker and sorter operator, hip flexors, tibialis Anterior, quadriceps, toe extension (EHL), plantarflexion Motor examination - left side: 5/5: deltoids, biceps, triceps, wrist flexion, wrist extension, hip flexors, stacker and sorter operator, quadriceps, tibialis Anterior, toe extension (EHL), plantarflexion Detailed sensory examination: intact Reflex and gait examination: other (Unable to move without assistance. Tiny steps observed) Reflexes: Biceps: 2+, Triceps: 2+, Brachioradialis: 2+, Patella: 2+, Achilles: 2 + Mental Status Examination: awake, alert, oriented to person, oriented to place, oriented to time, follows commands appropriately, answers questions appropriately, no agnosia, no aphasia, no aproxia Cranial nerve examination: PERRL, EOMI, visual poon intact, corneal reflexes brisk symmetrically, sensory to face intact, mastication intact, no facial asymmetry is present, no dysarthria, hearing is intact symmetrically, soft palate elevates bilaterally upon phonation, gag reflex intact, flexes SCM and trapezius muscles symmetrically with full power, tongue protrudes midline, no atrophy or facial fasiculations present Results - Laboratory Findings CBC and BMP: 01/05/17 03:51 01/07/17 09:18 Abnormal lab findings: Abnormal lab results ESR 21 mm/hr (0-15) H 01/07/17 09:18 Glucose 129 mg/dL (70-99) H 01/07/17 09:18 Urine Clarity Cloudy (Clear) A 01/04/17 12:18 Consult Discharge Plan - Plan Referrals: Cornelius Smith MD [Primary Care Provider] - Shai Acosta MD [Partnered Physician] - 01/20/17 3:10 pm Prescriptions: Buspirone HCl [Buspar] 7.5 mg PO BID PRN #60 tablet PRN Reason: Anxiety Carbidopa/Levodopa 10/100 [Sinemet 10/100] 1 each PO TID #90 tablet
[2017-01-07 21:20] LABS: Alpha 2 Globulin (PEP) 0.84 g/dL (0.48-1.05); Beta Globulin (PEP) 0.72 g/dL (0.48-1.10)
[2017-01-08] MEDS: *HR* Enoxaparin 40 MG/0.4 ML SYRINGE SQ SCH (06:25)
[2017-01-08 07:12] LABS: IFE Reflexed NOT DONE
[2017-01-08] MEDS: Multivit/Ca/Min/Fe/FA 1 TAB TABLET PO SCH (10:23)
[2017-01-08] MEDS: *HR* HYDROcodone/Acet 5/325 mg TABLET PO PRN (10:23)
[2017-01-08] MEDS: Thiamine (B-1) 100 MG TABLET PO SCH (10:23)
[2017-01-08] MEDS: Aspirin 81 MG TAB.CHEW PO SCH (10:25)
--- NOTE | 2017-01-08 10:49 | Discharge Summary ---
Date of Encounter: 01/09/17 Time of Encounter: 10:47 - Discharge Diagnosis (1) Generalized weakness Priority: Primary Status: Acute (2) Parkinson disease Priority: Primary Status: Acute - Discharge Medications Prescriptions: Buspirone HCl [Buspar] 7.5 mg PO BID PRN #60 tablet PRN Reason: Anxiety Carbidopa/Levodopa 10/100 [Sinemet 10/100] 1 each PO TID #90 tablet Home Medications: Aspirin 81 mg PO DAILY 01/04/17 [History] Docusate Sodium [Dok] 100 mg PO DAILY PRN 01/04/17 [History] Escitalopram Oxalate 5 mg PO DAILY 01/04/17 [History] Levothyroxine Sodium 100 mcg PO DAILY 01/04/17 [History] Multivit-Min/FA/Lycopen/Lutein [Centrum Silver Tablet] 1 each PO DAILY 01/04/17 [History] Polyethylene Glycol 3350 [MiraLAX] 17 gm PO DAILY PRN 01/04/17 [History] Buspirone HCl [Buspar] 7.5 mg PO BID PRN #60 tablet 01/08/17 [Rx] Carbidopa/Levodopa 10/100 [Sinemet 10/100] 1 each PO TID #90 tablet 01/08/17 [Rx ] Allergies/Adverse Reactions: Allergies esomeprazole [From Nexium] Allergy (Verified 01/04/17 09:55) Nausea Procedures/tests Complete & Pending: Procedures Performed prior 72 hours Category Date Time Status MR cervical spine wo con [MR] Routine MRI 01/07/17 16:52 Completed MR head wo/w con [MR] Routine MRI 01/06/17 15:22 Completed Date of admission: 01/04/17 13:53 Primary care physician: Cornelius Smith MD Consults: 01/04/17 14:37 Consult to Oncology [CONS] Routine Consulting Provider: Oncology [facility] Reason for Consult: weakness - 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 Time Notified: 14:40 Call Completed: Yes 01/04/17 14:40 OT [Consult to Occupational Therapy] [CONS] Routine Comment: Evaluate, develop and implement POC PT [Consult to Physical Therapy] [CONS] Routine Comment: Evaluate, develop and implement POC 01/07/17 09:06 Consult to Neurology [CONS] Routine Consulting Provider: Neurology [facility] Reason for Consult: Possible parkinsonism Call Completed: Yes Discharging clinician: Harpreet Spencer Anticipated date of discharge: 01/08/17 - Patient Status Disposition: Home, Self-Care Condition: Fair Functional capacity at discharge: wheelchair bound Overall status at discharge: patient is progressing back to baseline - Discharge Instructions Instructions: Carbidopa/Levodopa (By mouth), Buspirone (By mouth), Hypothyroidism (DC), Acute Abdominal Pain (DC), Weakness (GEN) Follow Up With: Cornelius Smith MD [Primary Care Provider] - Shai Acosta MD [Partnered Physician] - 01/20/17 3:10 pm - Diet and Activity Activity: resume usual activities as tolerated Diet: advance to your usual diet Interval History: Ms. Leon is a 81 year old female past medical history of hypothyroid, seizure , tremors heart disease polymyalgia rheumatica. According to the patient she has been in her usual state of health. Today the patient did get 5:30 this morning to go to the bathroom without difficulty however by 8 AM patient was unable to get out of bed and stand. She was brought to the emergency room for evaluation. 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 Lab work was unremarkable as well as EKG and chest x-ray. Patient continued to be unable to stand on her own and she has been admitted for further workup and evaluation. Neuro exam is within normal limits extremities 4 with strength 4/5. Cranial nerves II through XII intact. The family states patient has lost approximately 5 pounds in the past week. She denies any fevers chills nausea vomiting chest pain. Oncology was consulted for concerning lytic bone lesions on head CT. However the recommended that there is no evidence to suggest multiple myeloma at this time there is also no evidence of systemic malignancy. CT abdomen and pelvis has been negative. Left lung nodule has been stable. MRI brain does not show any other acute pathology. However she has generalized weakness and has acute onset difficulty walking that is concerning. Neurology was consulted and they said that patient has some atypical features of Parkinson's disease that is not responding well to dopa therapy. cervical myelogramw as recommended to r/o cervical myelopathy which was also negative. since all the results were negative, PT was consulted for gait training. she is being dc today to ECF in stable condition and will f/u with Dr. Tomlinson as OP for further f/u. Hospital course: Ms. Leon is a 81 year old female Time spent discussing smoking cessation with patient: more than 10 minutes - Time Spent with Patient Total time spent providing and/or coordinating discharge services: Greater than 30 minutes - Constitutional Vitals: Temp Pulse Resp BP Pulse Ox 97.9 F 79 14 174/83 97 01/08/17 06:32 01/08/17 06:32 01/08/17 06:32 01/08/17 06:32 01/08/17 06:32 General appearance: Present: A&O X 3, pleasant, no acute distress, answers questions appropriately Exam: - Head Head exam: Present: atraumatic, normocephalic - Neck Neck exam general surgery: Present: supple, trachea midline. Absent: lymphadenopathy - Respiratory Respiratory exam: Present: CTAB. Absent: accessory muscle use, rales, rhonchi, wheezes - Cardiovascular Cardiovascular exam: Present: RRR, +S1, +S2. Absent: diastolic murmur, gallop, rubs, systolic murmur - GI/Abdominal GI/Abdominal exam: Present: normal bowel sounds, soft, no peritoneal signs. Absent: distended, tenderness - Extremities Exam Extremities exam: Present: warm. Absent: cyanotic, pedal edema - Neurological Exam Neurological exam: Present: abnormal gait, CN II-XII intact, oriented X3, no focal deficits. Absent: pronater drift, facial droop, speech deficit - VTE Documentation of Mechanical Device: Graduated compression elastic hosiery
[2017-01-08 11:52] VITALS: BP 162/88
--- NOTE | 2017-01-08 12:23 | Neurology Progress Note ---
Date of Encounter: 01/08/17 Time of Encounter: 12:20 Assessment and Plan (1) Parkinson disease Current Visit: Yes Status: Acute Overall speaking patient has atypical Parkinsonism in lacking of unilateral features with no rest tremors. No evidence of cervical spinal cord pathology. 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 Patient is on Dopa therapy now and no changes will be made. Patient is to follow up in Neurology, appointment already been made. (2) Difficulty walking Current Visit: Yes Status: Acute Subjective Principal diagnosis: Parkinsonism Interval history: Patient seen and examined. She is feeling a little better today and says that the leg weakness also improved although she uses the words 'come and go'. Completed MRI of cervical spine which showed no spinal cord signal changes. Objective - Constitutional Vitals: Temp Pulse Resp BP Pulse Ox 97.9 F 70 16 162/88 96 01/08/17 11:50 01/08/17 11:50 01/08/17 11:50 01/08/17 11:50 01/08/17 11:50 - Neurological Exam Sensorimotor examination: Present: intact Motor Examination: Present: grossly full strength in all extremities, other ( The weakness in legs, only manifest when she tried to get up and has diffiuclty getting up without support. Able to maintain posture but unable to able, except small steps) Motor examination - left side: 5/5: deltoids, biceps, triceps, wrist flexion, wrist extension, hip flexors, harpoon engagement planning operator, quadriceps, tibialis Anterior, toe extension (EHL), plantarflexion Sensation intact: Present: intact Reflex and gait examination: other (Unable to move without assistance. Tiny steps observed) Mental Status Examination: Present: awake, alert, oriented to person, oriented to place, oriented to time, follows commands appropriately, answers questions appropriately, no agnosia, no aphasia, no aproxia Cranial nerve examination: Present: PERRL, EOMI, visual poon intact, corneal reflexes brisk symmetrically, sensory to face intact, mastication intact, no facial asymmetry is present, no dysarthria, hearing is intact symmetrically, soft palate elevates bilaterally upon phonation, gag reflex intact, flexes SCM and trapezius muscles symmetrically with full power, tongue protrudes midline, no atrophy or facial fasiculations present - VTE Documentation of Mechanical Device: Graduated compression elastic hosiery Results - Laboratory Findings CBC and BMP: 01/05/17 03:51 01/07/17 09:18 Abnormal lab findings: Abnormal lab results ESR 21 mm/hr (0-15) H 01/07/17 09:18 Glucose 129 mg/dL (70-99) H 01/07/17 09:18 Urine Clarity Cloudy (Clear) A 01/04/17 12:18 Consult Discharge Plan - Plan Instructions: Carbidopa/Levodopa (By mouth), Buspirone (By mouth), Hypothyroidism (DC), Acute Abdominal Pain (DC), Weakness (GEN) Referrals: Cornelius Smith MD [Primary Care Provider] - Shai Acosta MD [Partnered Physician] - 01/20/17 3:10 pm Prescriptions: Buspirone HCl [Buspar] 7.5 mg PO BID PRN #60 tablet PRN Reason: Anxiety Carbidopa/Levodopa 10/100 [Sinemet 10/100] 1 each PO TID #90 tablet
== END 2017-01-08 12:41 | disposition home or self-care (01) ==
LOC: EMEROO 09:51 → 3BNU 09:51
PROVIDERS: ADMIT Nurse Practitioner Acute Care; ATTEND Nurse Practitioner Family

== ENCOUNTER 2017-12-31 18:40 | Inpatient (IN) ==
[2017-12-31] MEDS ORDERED: *HR* Metoprolol 5 MG/5 ML VIAL IVP ONE (18:54)
--- NOTE | 2017-12-31 18:54 | Emergency Department Note ---
START Narrative - START START: I examined this patient and my medical decision-making was reviewed with the Resident Physician. I agree with the documented findings, disposition and treatment plan as described except to the extent set forth below. 82 year old female preesnts to the ED with cmplaints of exetional dyspnea and denies COPD, or need for supplemental oxygen therapy. Denies fevers, cough, hemopytsis or chest pain. We will start cardiopulmonary workup and sign out to the night team. vital signs are stable.
[2017-12-31 19:12] LABS: Basophils # 0.1 K/mcL (0.0-0.2); Basophils % 0.8 %; Eosinophils # 0.1 K/mcL (0.0-0.6); Hematocrit 41.1 % (35.3-44.9); Hemoglobin 13.2 g/dL (11.5-15.4); Immature Granulocytes % 0.2 % (0-4); Lymphocytes # 1.5 K/mcL (0.6-4.6); Lymphocytes % 23.2 %; Mean Corpuscular HGB Conc 32.1 g/dL (31.6-35.5); Mean Corpuscular Hemoglobin 30.4 pg (28.0-33.3); Mean Corpuscular Volume 94.7 fL (83.0-100.0); Mean Platelet Volume 10.9 fL (9.4-12.4); Monocytes # 0.4 K/mcL (0.0-1.3); Monocytes % 6.3 %; Neutrophils # 4.4 K/mcL (1.6-8.9); Platelet Count 177 K/mcL (140-400); Red Blood Count 4.34 M/mcL (3.82-4.97); Red Cell Distribution Width 14.2 % (11.5-14.5); Segmented Neutrophils % 67.5 %
[2017-12-31 19:18] LABS: INR 1.1; Prothrombin Time 11.3 Seconds (9.4-12.1)
[2017-12-31 19:20] LABS: Activated Partial Thrombo Time 31.3 Seconds (26.0-36.0)
--- NOTE | 2017-12-31 19:23 | Emergency Department Note ---
Disposition Clinical Impression: Pulmonary nodule Acute exacerbation of CHF (congestive heart failure) Qualifiers: Heart failure type: unspecified Qualified Code(s): I50.9 - Heart failure, unspecified Dyspnea Qualifiers: Dyspnea type: unspecified Qualified Code(s): R06.00 - Dyspnea, unspecified Disposition: Admitted As Inpatient Condition: Good General Adult HPI - General Chief complaint: ED Shortness of Breath/Dyspnea Stated complaint: SOB Time Seen by Provider: 12/31/17 18:41 Source: patient, EMS Limitations: no limitations Nursing Notes Reviewed: Yes Vital Signs Reviewed: Yes - History of Present Illness HPI Narrative: 82 y/o female who reports that she had sudden onset dyspnea at 4:30pm after waking up from a nap. Denies hx of heart or lung problems. Denies feeling short of breath like this before. States it has not gotten better or worse. Admits to mild LE edema over the last few weeks. No hx of COPD or CHF. Denies chest pain, or diaphoresis, or abd pain, or N/V. She reports feeling fine aside from the dyspnea. Radiation: non-radiation Pain Scale: 0 Consistency: constant Improves with: nothing Worsens with: nothing Associated symptoms: Reports: denies other symptoms Treatments Prior to Arrival: none - Related Data Home Medications Medication Instructions Recorded Confirmed Aspirin 81 mg PO DAILY 01/04/17 08/04/17 Docusate Sodium [Dok] 100 mg PO DAILY PRN 01/04/17 08/04/17 Escitalopram Oxalate 5 mg PO DAILY 01/04/17 08/04/17 Multivit-Min/FA/Lycopen/Lutein 1 each PO DAILY 01/04/17 08/04/17 [Centrum Silver Tablet] Polyethylene Glycol 3350 [MiraLAX] 17 gm PO DAILY PRN 01/04/17 08/04/17 Loratadine [Claritin] 10 mg PO DAILY 05/06/17 08/04/17 Carbidopa/Levodopa [Carbidopa-Levo 1 each PO DAILY 08/04/17 08/04/17 25-100 mg Odt] Levothyroxine [Synthroid] 125 mcg PO DAILY 08/04/17 08/04/17 Oxybutynin Chloride [Ditropan Xl] 10 mg PO DAILY 08/04/17 08/04/17 Previous Rx's Medication Instructions Recorded Buspirone HCl [Buspar] 7.5 mg PO BID PRN #60 tablet 01/08/17 Naproxen [Naprosyn] 500 mg PO BID PRN #10 tablet 05/17/17 Allergies Allergy/AdvReac Type Severity Reaction Status Date / Time esomeprazole [From Nexium] Allergy Nausea Verified 08/04/17 13:48 All systems ED: reviewed and negative except as stated. Review of Systems: As Per HPI Constitutional: Denies: fever Cardiovascular: Denies: chest pain Integumentary: Denies: rash Neurological: Denies: headache, weakness Past Medical History - Past Medical History Medical history: Reports: seizures, TIA Surgical history: Reports: cholecystectomy, hysterectomy, other Psychiatric history: Reports: anxiety, depression - Social History Smoking Status: Never smoker Smokeless Tobacco Status: No Alcohol use: Reports: none Drug use: Reports: none Physical Exam - General Limitations: no limitations General appearance: alert, in no apparent distress - Head Head exam: atraumatic - Eye Eye exam: Present: normal appearance, PERRL - ENT ENT exam: normal exam - Neck Neck exam: Present: normal inspection - Chest Chest inspection: Present: normal inspection - Respiratory Respiratory exam: Present: normal lung sounds bilaterally. Absent: respiratory distress - Cardiovascular Cardiovascular exam: Present: regular rate, normal rhythm - Abdominal Exam Abdominal exam: Present: soft, Non-Tender - Extremities Exam Extremities exam: Present: pedal edema (mild 1+ bilateral LE edema. No warmth/ erythema/tenderness) - Neurological Exam Neurological exam: Present: alert, oriented X3, CN II-XII intact. Absent: motor sensory deficit - Psychiatric Psychiatric exam: Present: normal affect, normal mood - Skin Skin exam: Present: warm, dry Course Course Narrative: Symptoms consistent with new onset CHF. No hx of this. HTN and will get lasix and nitro patch. Negative EKG and troponin. Will admit. Accepted by Tiffany. Vital Signs Temperature 97.7 F 12/31/17 18:46 Pulse Rate 80 12/31/17 18:46 Respiratory Rate 20 12/31/17 18:46 Blood Pressure 183/100 12/31/17 18:46 O2 Sat by Pulse Oximetry 95 12/31/17 18:46 Temperature 97.7 F 12/31/17 18:46 Pulse Rate 69 12/31/17 20:49 Respiratory Rate 18 12/31/17 19:42 Blood Pressure 169/77 12/31/17 20:49 O2 Sat by Pulse Oximetry 93 12/31/17 20:49 Oxygen Delivery Oxygen Delivery Nasal Cannula Medical Decision Making - Medical Records Medical records reviewed: Yes I reviewed the patient's medical records. - Lab Data Lab results reviewed: Yes I reviewed the patient's lab results. Result diagrams: 12/31/17 19:02 12/31/17 19:02 Lab Results 12/31/17 12/31/17 12/31/17 Range/Units 19:02 19:02 19:02 WBC (4.3-11.1) K/mcL RBC (3.82-4.97) M/mcL Hgb (11.5-15.4) g/dL Hct (35.3-44.9) % MCV (83.0-100.0) fL MCH (28.0-33.3) pg MCHC (31.6-35.5) g/dL RDW (11.5-14.5) % Plt Count (140-400) K/mcL MPV (9.4-12.4) fL Immature Gran % (0-4) % Seg Neutrophils % % Lymphocytes % % Monocytes % % Eosinophils % % Basophils % % Neutrophils # (1.6-8.9) K/mcL Lymphocytes # (0.6-4.6) K/mcL Monocytes # (0.0-1.3) K/mcL Eosinophils # (0.0-0.6) K/mcL Basophils # (0.0-0.2) K/mcL PT 11.3 (9.4-12.1) Seconds INR 1.1 APTT 31.3 (26.0-36.0) Seconds Sodium 140 (136-145) mEq/L Potassium 4.0 (3.5-5.1) mEq/L Chloride 110 H (98-107) mEq/L Carbon Dioxide 25 (23-29) mEq/L BUN 19 (8-23) mg/dL Creatinine 0.69 (0.60-1.20) mg/dL Est GFR ( Amer) > 60 (> 60) Est GFR (Non-Af Amer) > 60 (> 60) BUN/Creatinine Ratio 28 H (6-26) Glucose 98 (70-105) mg/dL Calculated Osmolality 292 (280-300) Calcium 9.7 (8.6-10.3) mg/dL Total Bilirubin 0.7 (0.3-1.0) mg/dL Direct Bilirubin 0.1 (0.0-0.2) mg/dL Indirect Bilirubin 0.6 (0.0-1.2) mg/dL AST 17 (13-39) Units/L ALT 4 L (7-52) Units/L Alkaline Phosphatase 49 (34-104) Units/L Troponin I (< 0.04) ng/mL B-Natriuretic Peptide 1054 H (Less than 100) pg/mL Serum Total Protein 6.7 (6.4-8.9) g/dL Albumin 4.1 (3.5-5.7) g/dL Globulin 2.6 (2.4-3.5) g/dL Albumin/Globulin Ratio 1.6 (1.1-2.2) Lipase 4 L (11-82) Units/L 12/31/17 12/31/17 Range/Units 19:02 19:02 WBC 6.5 (4.3-11.1) K/mcL RBC 4.34 (3.82-4.97) M/mcL Hgb 13.2 (11.5-15.4) g/dL Hct 41.1 (35.3-44.9) % MCV 94.7 (83.0-100.0) fL MCH 30.4 (28.0-33.3) pg MCHC 32.1 (31.6-35.5) g/dL RDW 14.2 (11.5-14.5) % Plt Count 177 (140-400) K/mcL MPV 10.9 (9.4-12.4) fL Immature Gran % 0.2 (0-4) % Seg Neutrophils % 67.5 % Lymphocytes % 23.2 % Monocytes % 6.3 % Eosinophils % 2.0 % Basophils % 0.8 % Neutrophils # 4.4 (1.6-8.9) K/mcL Lymphocytes # 1.5 (0.6-4.6) K/mcL Monocytes # 0.4 (0.0-1.3) K/mcL Eosinophils # 0.1 (0.0-0.6) K/mcL Basophils # 0.1 (0.0-0.2) K/mcL PT (9.4-12.1) Seconds INR APTT (26.0-36.0) Seconds Sodium (136-145) mEq/L Potassium (3.5-5.1) mEq/L Chloride (98-107) mEq/L Carbon Dioxide (23-29) mEq/L BUN (8-23) mg/dL Creatinine (0.60-1.20) mg/dL Est GFR ( Amer) (> 60) Est GFR (Non-Af Amer) (> 60) BUN/Creatinine Ratio (6-26) Glucose (70-105) mg/dL Calculated Osmolality (280-300) Calcium (8.6-10.3) mg/dL Total Bilirubin (0.3-1.0) mg/dL Direct Bilirubin (0.0-0.2) mg/dL Indirect Bilirubin (0.0-1.2) mg/dL AST (13-39) Units/L ALT (7-52) Units/L Alkaline Phosphatase (34-104) Units/L Troponin I < 0.03 (< 0.04) ng/mL B-Natriuretic Peptide (Less than 100) pg/mL Serum Total Protein (6.4-8.9) g/dL Albumin (3.5-5.7) g/dL Globulin (2.4-3.5) g/dL Albumin/Globulin Ratio (1.1-2.2) Lipase (11-82) Units/L - Radiology Data Radiology results reviewed: Yes I reviewed the patient's radiology results. - EKG Data EKG #1 EKG attestation: Yes I reviewed and interpreted this EKG. EKG shows normal: sinus rhythm Rate: normal Rhythm: NSR Peck/QRS: normal When compared to previous EKG there are: no significant changes Interpretation: unchanged when compared to prior tracing (date) Critical Care Time Critical Care Time: Yes Total Critical Care Time: 35 Attestation: Critical care performed: Time is exclusive of separately billable procedures. Time includes: direct patient care, patient reassessment, coordination of patient care, interpretation of data (laboratory data, radiology data, and respiratory data), review of patient's medical records, medical consultation and documentation of patient care. Procedures included in critical care time: Procedures excluded from critical care time: Attestation Statement - Attestation Attestation: ICleveland MD, personally evaluated this patient and discussed their management with the resident physician. I reviewed the residents note and agree with the documented findings, medical decision making, and plan of care. 82 female presents to the Emergency Department with complaint of elevated blood pressure for the past week and today developed increased shortness of breath. No cough or fever. No chest pain. No history of CHF or COPD. On examination patient is a well developed well nourished well appearing elderly female in no acute distress. She is alert and oriented X 3. There is no cyanosis or diaphoresis. Breath sounds are decreased but equal bilaterally with a few mild bibasilar rales. Heart regular rate and rhythm. Abdomen soft with normal bowel sounds. Mild left upper quadrant tenderness on direct palpation. Trace pedal edema. Labs reviewed. BNP elevated. CTA of chest consistent with CHF and pulmonary edema. No evidence of PE. The hospitalist, Dr. Allen, was consulted and accepted admission of the patient.
[2017-12-31 19:47] LABS: Alanine Aminotransferase 4 Units/L (7-52); Albumin 4.1 g/dL (3.5-5.7); Albumin/Globulin Ratio 1.6 (1.1-2.2); Alkaline Phosphatase 49 Units/L (34-104); Aspartate Amino Transferase 17 Units/L (13-39); BUN/Creatinine Ratio 28 (6-26); Bilirubin,Direct 0.1 mg/dL (0.0-0.2); Bilirubin,Indirect 0.6 mg/dL (0.0-1.2); Bilirubin,Total 0.7 mg/dL (0.3-1.0); Blood Urea Nitrogen 19 mg/dL (8-23); Calcium 9.7 mg/dL (8.6-10.3); Carbon Dioxide 25 mEq/L (23-29); Chloride 110 mEq/L (98-107); Globulin 2.6 g/dL (2.4-3.5); Glucose 98 mg/dL (70-105); Lipase 4 Units/L (11-82); Osmolality,Calculated 292 (280-300); Sodium 140 mEq/L (136-145); Total Protein 6.7 g/dL (6.4-8.9); eGFR For African Americans > 60 (> 60); eGFR For Non-African Americans > 60 (> 60)
[2017-12-31] MEDS ORDERED: Furosemide 40 MG/4 ML VIAL IVP ONE (20:13)
[2017-12-31] MEDS ORDERED: Nitroglycerin 1 INCH/GM PACKET TP ONE (20:13)
[2017-12-31] MEDS ORDERED: Naloxone 0.4 MG/ML INJ IVP PRN (23:11)
--- NOTE | 2018-01-01 | Internal Med History&Physical ---
Date of Encounter: 12/31/17 Time of Encounter: 22:00 Assessment and Plan (1) Acute exacerbation of CHF (congestive heart failure) Current visit: Yes Status: Acute Pt has increased SOB. CXR and elevated BNP support CHF exacerbation. However, pt has not been diagnosed as CHF previously. Also need to r/o ACS as SOB is sudden onset with chest tightness. - Cont cardiac monitoring - Track 3 sets of troponin - Echo - Lasix 40mg iv daily, first dose given in ER - Strict I/O, fluid restriction diet. - Consider cardio consult if Echo or troponin shows significant abnormality. Qualifiers: Heart failure type: unspecified Qualified Code(s): I50.9 - Heart failure, unspecified (2) Pulmonary nodule Current visit: Yes Status: Acute Cont outpatient f/u per protocol (3) DVT prophylaxis Current visit: No Status: Acute heparin sc (4) Parkinson disease Current visit: No Status: Acute Cont home meds. Pt denies swallow abnormality (5) Hypothyroid Current visit: No Status: Chronic Cont home meds Qualifiers: Hypothyroidism type: acquired Qualified Code(s): E03.9 - Hypothyroidism, unspecified (6) Hypertension Current visit: Yes Status: Acute Pt said BP is high in recent week but denies hx of HTN. - Will start losartan and metoprolol for BP control - Closely monitor BP. Qualifiers: Hypertension type: essential hypertension Qualified Code(s): I10 - Essential (primary) hypertension Internal Medicine - H&P: HPI Chief complaint: SOB Admitted From: Home Plans for Post Hospital Care: Home History of present illness: Ms. Leon is a 82 year old female with Hx of Parkinson dis, HTN, present to ER for SOB. Pt said she has sudden onset SOB since this afternoon. Pt does c/o non-productive cough for 3 wks. Pt also c/o chest tightness but denies chest pain. Pt has no nausea, no fever. She was found mild diaphoresis by her sister. In ER, she was found elevated BNP. CXR and CTA shows pulmonary congestion/edema , no PE. Pt was admitted for acute exacerbation of CHF. I have discussed with Pt regarding CODE STATUS, she clearly told me she doesn't want CPR or intubation, DNR/DNI placed. Past Med Surg Social Fam HX - Past Medical History Medical history: seizures, TIA Psychiatric history: anxiety, depression - Past Surgical History Surgical History: cholecystectomy, hysterectomy, other - Social History Smoking Status: Never smoker Smokeless Tobacco Status: No Alcohol use: none Drug use: none - Family History Father Hx Family Cardiac Disorders: Yes (Mother and father) Hx Family Respiratory Disorders: Yes (emphesmia father) Hx Family Cancer: Yes (sister breast, brother lung, throat cancer, brother, colon cancer) Hx Family GI Disorders: No Hx Family Genitourinary Disorders: No Hx Family Endocrine Disorder: Yes (mother DM,) Hx Family Musculoskeletal Disorders: No Hx Family Neuromuscular Disorders: No Hx Family Neurologic Disorders: No Hx Family HEENT Disorders: Yes (Sister tubes in ear, nose operation) Hx Family Autoimmune Disorders: No Hx Family Reproductive Disorders: No Hx Family Psychosocial Disorders: No Hx Family Medical Disorders: No Brother Hx Family Cancer: Yes (lung Ca) Internal Medicine - H&P: Meds Aspirin 81 mg PO DAILY 01/04/17 [History] Docusate Sodium [Dok] 100 mg PO DAILY PRN 01/04/17 [History] Escitalopram Oxalate 5 mg PO DAILY 01/04/17 [History] Multivit-Min/FA/Lycopen/Lutein [Centrum Silver Tablet] 1 each PO DAILY 01/04/17 [History] Polyethylene Glycol 3350 [MiraLAX] 17 gm PO DAILY PRN 01/04/17 [History] Buspirone HCl [Buspar] 7.5 mg PO BID PRN #60 tablet 01/08/17 [Rx] Loratadine [Claritin] 10 mg PO DAILY 05/06/17 [History] Naproxen [Naprosyn] 500 mg PO BID PRN #10 tablet 05/17/17 [Rx] Carbidopa/Levodopa [Carbidopa-Levo 25-100 mg Odt] 1 each PO DAILY 08/04/17 [ History] Levothyroxine [Synthroid] 125 mcg PO DAILY 08/04/17 [History] Oxybutynin Chloride [Ditropan Xl] 10 mg PO DAILY 08/04/17 [History] 3 Allergy/AdvReac Type Severity Reaction Status Date / Time esomeprazole [From Nexium] Allergy Nausea Verified 08/04/17 13:48 All Systems PM: A 10-system review of systems was performed and is negative for pertinent findings except as documented above in the HPI. - Constitutional Vitals: Temp Pulse Resp BP Pulse Ox 97.6 F 70 18 166/77 99 12/31/17 22:59 12/31/17 22:59 12/31/17 22:59 12/31/17 22:59 12/31/17 22:59 General appearance: Present: A&O X 3, no acute distress, answers questions appropriately - Head Head exam: Present: atraumatic, normocephalic - Eye Eye exam: Present: PERRL, conjuntiva pink, sclera anicteric Pupils: Present: PERRL - Neck Neck exam general surgery: Present: supple, trachea midline. Absent: lymphadenopathy - Respiratory Respiratory exam: Present: CTAB, rales (Crackles on b/l lung base). Absent: accessory muscle use, rhonchi, wheezes - Cardiovascular Cardiovascular exam: Present: RRR, +S1, +S2. Absent: diastolic murmur, gallop, rubs, systolic murmur - GI/Abdominal GI/Abdominal exam: Present: normal bowel sounds, soft, no peritoneal signs. Absent: distended, tenderness - Extremities Exam Extremities exam: Present: warm, radial pulses palpable and symmetrical. Absent : calf tenderness, cyanotic, pedal edema - Neurological Exam Neurological exam: Present: CN II-XII intact, oriented X3, no focal deficits. Absent: pronater drift, facial droop, speech deficit - Skin Skin exam: Present: dry, intact Internal Med - H&P Results - Labs CBC & Chem 7: 12/31/17 19:02 12/31/17 19:02 - EKG Data -: EKG Interpreted by Myself EKG shows normal: sinus rhythm Rate: normal
[2018-01-01] MEDS: Carbidopa/Levodopa 25/100 TABLET PO SCH ×5 (00:29→20:11)
[2018-01-01 01:01] LABS: Basophils % 0.5 %; Eosinophils # 0.1 K/mcL (0.0-0.6); Eosinophils % 1.6 %; Hemoglobin 12.4 g/dL (11.5-15.4); Immature Granulocytes % 0.1 % (0-4); Lymphocytes # 1.4 K/mcL (0.6-4.6); Mean Corpuscular HGB Conc 32.6 g/dL (31.6-35.5); Mean Corpuscular Hemoglobin 30.6 pg (28.0-33.3); Mean Corpuscular Volume 93.8 fL (83.0-100.0); Monocytes # 0.6 K/mcL (0.0-1.3); Monocytes % 7.1 %; Neutrophils # 5.9 K/mcL (1.6-8.9); Platelet Count 167 K/mcL (140-400); Red Blood Count 4.05 M/mcL (3.82-4.97); Red Cell Distribution Width 14.4 % (11.5-14.5); Segmented Neutrophils % 73.7 %
[2018-01-01 01:17] LABS: BUN/Creatinine Ratio 23 (6-26); Blood Urea Nitrogen 17 mg/dL (8-23); Calcium 9.3 mg/dL (8.6-10.3); Carbon Dioxide 28 mEq/L (23-29); Chloride 108 mEq/L (98-107); Glucose 107 mg/dL (70-105); Osmolality,Calculated 292 (280-300); Potassium 3.5 mEq/L (3.5-5.1); Sodium 140 mEq/L (136-145); eGFR For African Americans > 60 (> 60); eGFR For Non-African Americans > 60 (> 60)
[2018-01-01] MEDS: *HR* Heparin 5,000 UNIT/ML VIAL SQ SCH ×2 (05:34→17:52)
[2018-01-01] MEDS ORDERED: Furosemide 40 MG/4 ML VIAL IVP SCH (09:00)
--- NOTE | 2018-01-01 09:24 | Internal Med Progress Note ---
<Radha Juarez - Last Filed: 01/01/18 10:56> Date of Encounter: 01/01/18 Time of Encounter: 09:47 - Assessment and plan (1) Pneumonia Current Visit: Yes Status: Acute Assessment and plan: see below Qualifiers: Pneumonia type: due to unspecified organism Laterality: unspecified laterality Lung location: unspecified part of lung Qualified Code(s): J18.9 - Pneumonia, unspecified organism (2) Shortness of breath Current Visit: Yes Status: Acute Assessment and plan: Patient arrived with symptoms of shortness of breath X3 weeks she also reports nonproductive cough. CT chest showed no evidence of PE, there were small bilateral pleural effusions , reactive mediastinal lymphadenopathy routine 13 mm nodule present. Etiology unclear at this time, consider acute CHF. CXR: vascular congestion likely secondary to pneumonia, consider atypical pneumonia Plan: legionella antigen pending PRN DuoNebs blood cultures x2 levauin day 1 Lasix 40 mg IV daily strict I/O daily weight Echo pending UA pending (3) Pulmonary nodule Current Visit: Yes Status: Acute Assessment and plan: CT chest showed small bilateral pleural effusions, ill defined 13mm subpleural nodule on left upper lobe previously measured 1cm. patient states she was never a smoker but was to a "chain smoker" Plan: outpatient follow up with PCP for repeat imaging and monitoring. (4) Parkinson disease Current Visit: No Status: Acute Assessment and plan: continue Sinemet (5) Hypothyroidism Current Visit: Yes Status: Acute Assessment and plan: continue synthroid Qualifiers: Hypothyroidism type: unspecified Qualified Code(s): E03.9 - Hypothyroidism , unspecified (6) Hypertension Current Visit: Yes Status: Acute Assessment and plan: stable. continue cozaar, metoprolol Qualifiers: Hypertension type: essential hypertension Qualified Code(s): I10 - Essential (primary) hypertension (7) DVT prophylaxis Current Visit: No Status: Acute Assessment and plan: heparin SQ - Subjective Interval history: 82-year-old female evaluated at bedside. Patient denies nausea, vomiting, diarrhea, fever, chills, chest pain, shortness of breath. She states that she has not been diagnosed with CHF in the past. He denies any problems today. - Constitutional Vitals: Temp Pulse Resp BP Pulse Ox 97.9 F 61 18 126/61 96 01/01/18 07:26 01/01/18 07:26 01/01/18 07:26 01/01/18 07:26 01/01/18 07:26 General appearance: Present: A&O X 3, pleasant, no acute distress, answers questions appropriately - Head Head exam: Present: atraumatic, normocephalic - Neck Neck exam general surgery: Present: supple, trachea midline - Respiratory Additional comments: decreased breath sounds on left lung, mild bibasilar rales present. - Cardiovascular Cardiovascular exam: Present: RRR, +S1, +S2 - GI/Abdominal GI/Abdominal exam: Present: distended, normal bowel sounds, soft. Absent: tenderness - Extremities Exam Extremities exam: Absent: cyanotic, pedal edema Additional comments: left lower extremity pain. - Neurological Exam Neurological exam: Present: alert, oriented X3, no focal deficits - Psychiatric Psychiatric exam: Present: normal affect, normal mood Internal Medicine: Result - Labs CBC & Chem 7: 01/01/18 00:49 01/01/18 00:49 Labs: Short CBC 01/01/18 Range/Units 00:49 WBC 8.0 (4.3-11.1) K/mcL Hgb 12.4 (11.5-15.4) g/dL Hct 38.0 (35.3-44.9) % Plt Count 167 (140-400) K/mcL Neutrophils # 5.9 (1.6-8.9) K/mcL BMP 01/01/18 00:49 Sodium 140 Potassium 3.5 Chloride 108 H Carbon Dioxide 28 BUN 17 Creatinine 0.74 Glucose 107 H Calcium 9.3 Cardiac Enzymes 01/01/18 01/01/18 Range/Units 00:49 06:56 Troponin I < 0.03 < 0.03 (< 0.04) ng/mL - ABG Interpretation ABG results: PT/INR, D-dimer PT 11.3 Seconds (9.4-12.1) 12/31/17 19:02 Consult Discharge Plan - Plan Referrals: Cornelius Smith MD [Primary Care Provider] - <Lui Ring - Last Filed: 01/01/18 11:10> Date of Encounter: 01/01/18 - Constitutional Vitals: Temp Pulse Resp BP Pulse Ox 97.9 F 61 18 126/61 96 01/01/18 07:26 01/01/18 07:26 01/01/18 07:26 01/01/18 07:26 01/01/18 07:26 Internal Medicine: Result - Labs CBC & Chem 7: 01/01/18 00:49 01/01/18 00:49 Labs: Short CBC 01/01/18 Range/Units 00:49 WBC 8.0 (4.3-11.1) K/mcL Hgb 12.4 (11.5-15.4) g/dL Hct 38.0 (35.3-44.9) % Plt Count 167 (140-400) K/mcL Neutrophils # 5.9 (1.6-8.9) K/mcL BMP 01/01/18 00:49 Sodium 140 Potassium 3.5 Chloride 108 H Carbon Dioxide 28 BUN 17 Creatinine 0.74 Glucose 107 H Calcium 9.3 Cardiac Enzymes 01/01/18 01/01/18 Range/Units 00:49 06:56 Troponin I < 0.03 < 0.03 (< 0.04) ng/mL Urine 01/01/18 Range/Units 10:15 Urine Color Yellow (Yellow) Urine Clarity Clear (Clear) Urine pH 7.0 (5.0-8.0) pH Units Ur Specific [place] 1.025 (1.010-1.025) Urine Protein Negative (Neg-Trace) mg/dL Urine Glucose (UA) Normal (Normal) mg/dL - ABG Interpretation ABG results: PT/INR, D-dimer PT 11.3 Seconds (9.4-12.1) 12/31/17 19:02 - Attending Attestation Acute pulmonary edema likely secondary to acute diastolic CHF exacerbation, consider possible atypical pneumonia/community-acquired pneumonia unknown agent Start Levaquin, order blood cultures Continue Lasix IV, strict I's and O's and evaluate Echocardiogram pending I examined this patient and my medical decision-making was reviewed with the Resident Physician. I agree with the documented findings, disposition and treatment plan as described except to the extent set forth below.
[2018-01-01] MEDS ORDERED: Potassium Chloride Elixir 20 MEQ/15 ML UDC PO ONE (10:23)
[2018-01-01 10:32] LABS: Bilirubin,Urine Negative (Negative); Blood,Urine Negative (Negative); Clarity,Urine Clear (Clear); Color,Urine Yellow (Yellow); Glucose,Urine (UA) Normal (Normal); Ketones,Urine Negative (Negative); Leukocyte Esterase,Urine Negative (Negative); Nitrite,Urine Negative (Negative); Protein,Urine Negative (Neg-Trace); Specific Gravity,Urine 1.025 (1.010-1.025); Urobilinogen,Urine Normal (Normal)
[2018-01-01] MEDS ORDERED: Ipratropium/Albuterol Neb 3 ML IH PRN (11:01)
[2018-01-01] MEDS: Aspirin 81 MG TAB.CHEW PO SCH (11:05)
[2018-01-01] MEDS: Levofloxacin 750 MG/150 ML 750 MG/150 ML BAG IVPB SCH (12:31)
[2018-01-01] MEDS: Furosemide 40 MG/4 ML VIAL IVP SCH (17:51)
[2018-01-02] MEDS: *HR* Heparin 5,000 UNIT/ML VIAL SQ SCH ×2 (05:31→16:59)
[2018-01-02 06:40] LABS: BUN/Creatinine Ratio 33 (6-26); Blood Urea Nitrogen 27 mg/dL (8-23); Carbon Dioxide 24 mEq/L (23-29); Chloride 108 mEq/L (98-107); Glucose 94 mg/dL (70-105); Osmolality,Calculated 293 (280-300); Potassium 3.4 mEq/L (3.5-5.1); Sodium 139 mEq/L (136-145); eGFR For African Americans > 60 (> 60); eGFR For Non-African Americans > 60 (> 60)
[2018-01-02 07:59] LABS: Acinetobacter baumannii by PCR Not Detected (Not Detect); Candida albicans by PCR Not Detected (Not Detect); Candida glabrata by PCR Not Detected (Not Detect); Candida krusei by PCR Not Detected (Not Detect); Candida parapsilosis by PCR Not Detected (Not Detect); Candida tropicalis by PCR Not Detected (Not Detect); Enterococcus by PCR Not Detected (Not Detect); Escherichia coli by PCR Not Detected (Not Detect); Klebsiella oxytoca by PCR Not Detected (Not Detect); Klebsiella pneumoniae by PCR Not Detected (Not Detect); Pseudomonas aeruginosa by PCR Not Detected (Not Detect); Serratia marcescens by PCR Not Detected (Not Detect); Staphylococcus aureus by PCR Not Detected (Not Detect); Streptococcus agalactiae(B)PCR Not Detected (Not Detect); Streptococcus by PCR ***DETECTED*** (Not Detect); Streptococcus pneumoniae PCR Not Detected (Not Detect); Streptococcus pyogenes (A) PCR Not Detected (Not Detect)
[2018-01-02] MEDS: Furosemide 40 MG/4 ML VIAL IVP SCH ×2 (10:08→16:58)
[2018-01-02] MEDS: Aspirin 81 MG TAB.CHEW PO SCH (10:08)
[2018-01-02] MEDS: Levofloxacin 750 MG/150 ML 750 MG/150 ML BAG IVPB SCH (10:08)
[2018-01-02] MEDS: Carbidopa/Levodopa 25/100 TABLET PO SCH ×4 (10:08→20:47)
--- NOTE | 2018-01-02 13:02 | Internal Med Progress Note ---
<Christiano Watts - Last Filed: 01/02/18 12:59> Date of Encounter: 01/02/18 Time of Encounter: 09:20 - Assessment and plan (1) Pneumonia Current Visit: Yes Status: Acute Assessment and plan: -Presented with shortness of breath likely secondary to acute pneumonia CT chest showed no evidence of PE, there were small bilateral pleural effusions , reactive mediastinal lymphadenopathy routine 13 mm nodule present.. CXR: vascular congestion; likely secondary to pneumonia. Echo: 01/02/18 with EF 40-45%, global LV systolic dysfx, mod LV diastolic dysfx, moderate mitral regurg. -blood culture growing Strep sp. -Continue levaquin (day2), pending sensitive may need to adjust medications. -cont duonebs prn and supplemental oxygen. Qualifiers: Pneumonia type: due to unspecified organism Laterality: unspecified laterality Lung location: unspecified part of lung Qualified Code(s): J18.9 - Pneumonia, unspecified organism (2) Shortness of breath Current Visit: Yes Status: Acute Assessment and plan: see above. (3) Pulmonary nodule Current Visit: Yes Status: Acute Assessment and plan: CT chest showed small bilateral pleural effusions, ill defined 13mm subpleural nodule on left upper lobe previously measured 1cm. patient states she was never a smoker but was to a "chain smoker" Plan: outpatient follow up with PCP for repeat imaging and monitoring. (4) Parkinson disease Current Visit: No Status: Acute Assessment and plan: continue Sinemet (5) Hypertension Current Visit: Yes Status: Acute Assessment and plan: stable. continue cozaar, metoprolol Qualifiers: Hypertension type: essential hypertension Qualified Code(s): I10 - Essential (primary) hypertension (6) Hypothyroidism Current Visit: Yes Status: Acute Assessment and plan: continue synthroid Qualifiers: Hypothyroidism type: unspecified Qualified Code(s): E03.9 - Hypothyroidism , unspecified (7) DVT prophylaxis Current Visit: No Status: Acute Assessment and plan: heparin SQ - Time Spent With Patient less than 15 minutes - Subjective Interval history: Patient seen and examined at bedside. Patient notes she feels much better today compared to baseline. Notes improvement in breathing. No acute distress. Vitals currently stable on 3L via NC. Blood culture growing Strep sp., pending culture and sensitivity. - Constitutional Vitals: Temp Pulse Resp BP Pulse Ox 97.7 F 59 18 141/62 97 01/02/18 05:00 01/02/18 11:00 01/02/18 11:00 01/02/18 11:00 01/02/18 11:00 General appearance: Present: A&O X 3, pleasant, no acute distress, answers questions appropriately - Head Head exam: Present: atraumatic, normocephalic - Neck Neck exam general surgery: Present: supple, trachea midline - Respiratory Respiratory exam: Present: decreased breath sounds, CTAB. Absent: accessory muscle use, rales, rhonchi, wheezes - Cardiovascular Cardiovascular exam: Present: RRR, +S1, +S2. Absent: diastolic murmur, gallop, rubs, systolic murmur - GI/Abdominal GI/Abdominal exam: Present: normal bowel sounds, soft. Absent: distended, tenderness - Extremities Exam Extremities exam: Present: warm. Absent: calf tenderness, cyanotic, pedal edema - Neurological Exam Neurological exam: Present: alert, oriented X3, no focal deficits. Absent: facial droop, speech deficit - Skin Skin exam: Present: dry, intact Internal Medicine: Result - Labs CBC & Chem 7: 01/01/18 00:49 01/02/18 06:10 Labs: BMP 01/02/18 06:10 Sodium 139 Potassium 3.4 L Chloride 108 H Carbon Dioxide 24 BUN 27 H Creatinine 0.81 Glucose 94 Calcium 9.0 - ABG Interpretation ABG results: PT/INR, D-dimer PT 11.3 Seconds (9.4-12.1) 12/31/17 19:02 - Impressions Impressions Echocardiogram 01/02/18 23:18 Impressions: LVEF 40-45%. Global LV systolic dysfunction. Mild concentric left ventricular hypertrophy. LV size upper limits of normal. Moderate left ventricular diastolic dysfunction. Normal right ventricular structure and function. Moderate mitral regurgitation. No pulmonary hypertension - lack of TR gradient. Left Ventricular Wall Motion: Rest Echo Findings The apex, apical inferior, mid inferior, basal inferior, apical anterior, mid anterior, basal anterior, apical septal, mid inferior septal, basal inferior septal, apical lateral, mid anterior lateral, basal anterior lateral, mid anterior septal and basal anterior septal benavidez were hypokinetic. The mid inferior lateral and basal inferior lateral benavidez were not visualized. Findings: Study Quality * Technically adequate exam. ECG Findings * Normal sinus rhythm. Left Ventricle * Mild concentric left ventricular hypertrophy. * LV size upper limits of normal. * Moderate left ventricular diastolic dysfunction. * LVEF 40-45%. Right Ventricle * Normal right ventricular structure and function. Left Atrium * Severely dilated left atrium. Right Atrium * Normal right atrial size. Mitral Valve * Normal mitral valve structure. * No mitral stenosis. * Moderate mitral regurgitation. Aortic Valve * No aortic regurgitation. * Aortic valve not well visualized. * No aortic stenosis. Tricuspid Valve * Tricuspid valve not well visualized. * No tricuspid regurgitation. Pulmonic Valve * Pulmonic valve is not well visualized. * No pulmonic stenosis. * Trace pulmonic regurgitation. Pulmonary Artery * Pulmonary artery not well visualized. Aorta * Normally sized aortic root. Pericardium * There is no pericardial effusion present. Interatrial Septum * No evidence of PFO by color Doppler. IVC * The IVC is not dilated. * < 50% respiratory change. Consult Discharge Plan - Plan Referrals: Cornelius Smith MD [Primary Care Provider] - <Lui Ring - Last Filed: 01/02/18 14:34> Date of Encounter: 01/02/18 - Constitutional Vitals: Temp Pulse Resp BP Pulse Ox 97.7 F 59 18 141/62 97 01/02/18 05:00 01/02/18 11:00 01/02/18 11:00 01/02/18 11:00 01/02/18 11:00 Internal Medicine: Result - Labs CBC & Chem 7: 01/01/18 00:49 01/02/18 06:10 Labs: BMP 01/02/18 06:10 Sodium 139 Potassium 3.4 L Chloride 108 H Carbon Dioxide 24 BUN 27 H Creatinine 0.81 Glucose 94 Calcium 9.0 - ABG Interpretation ABG results: PT/INR, D-dimer PT 11.3 Seconds (9.4-12.1) 12/31/17 19:02 - Impressions Impressions Echocardiogram 01/02/18 23:18 Impressions: LVEF 40-45%. Global LV systolic dysfunction. Mild concentric left ventricular hypertrophy. LV size upper limits of normal. Moderate left ventricular diastolic dysfunction. Normal right ventricular structure and function. Moderate mitral regurgitation. No pulmonary hypertension - lack of TR gradient. Left Ventricular Wall Motion: Rest Echo Findings The apex, apical inferior, mid inferior, basal inferior, apical anterior, mid anterior, basal anterior, apical septal, mid inferior septal, basal inferior septal, apical lateral, mid anterior lateral, basal anterior lateral, mid anterior septal and basal anterior septal benavidez were hypokinetic. The mid inferior lateral and basal inferior lateral benavidez were not visualized. Findings: Study Quality * Technically adequate exam. ECG Findings * Normal sinus rhythm. Left Ventricle * Mild concentric left ventricular hypertrophy. * LV size upper limits of normal. * Moderate left ventricular diastolic dysfunction. * LVEF 40-45%. Right Ventricle * Normal right ventricular structure and function. Left Atrium * Severely dilated left atrium. Right Atrium * Normal right atrial size. Mitral Valve * Normal mitral valve structure. * No mitral stenosis. * Moderate mitral regurgitation. Aortic Valve * No aortic regurgitation. * Aortic valve not well visualized. * No aortic stenosis. Tricuspid Valve * Tricuspid valve not well visualized. * No tricuspid regurgitation. Pulmonic Valve * Pulmonic valve is not well visualized. * No pulmonic stenosis. * Trace pulmonic regurgitation. Pulmonary Artery * Pulmonary artery not well visualized. Aorta * Normally sized aortic root. Pericardium * There is no pericardial effusion present. Interatrial Septum * No evidence of PFO by color Doppler. IVC * The IVC is not dilated. * < 50% respiratory change. - Attending Attestation Acute pulmonary edema likely secondary to acute diastolic CHF exacerbation, consider possible atypical pneumonia/community-acquired pneumonia unknown agent Continue Levaquin day #2 Continue Lasix IV, strict I's and O's and evaluate CT scan of the chest showed: 1. No evidence of pulmonary embolism. 2. Small bilateral pleural effusions, smooth interlobular septal thickening, and patchy ground-glass opacities compatible with congestive heart failure and pulmonary edema. A superimposed infectious process is not excluded. 3. Mild likely reactive mediastinal lymphadenopathy. 4. Ill-defined 13 mm subpleural nodule in the left upper lobe previously measured approximately 1 cm cyst on 04/14/2017. I examined this patient and my medical decision-making was reviewed with the Resident Physician. I agree with the documented findings, disposition and treatment plan as described except to the extent set forth below.
[2018-01-03] MEDS: *HR* Heparin 5,000 UNIT/ML VIAL SQ SCH ×2 (06:10→17:33)
[2018-01-03 07:09] LABS: Basophils % 0.3 %; Eosinophils # 0.2 K/mcL (0.0-0.6); Eosinophils % 2.8 %; Hematocrit 39.3 % (35.3-44.9); Hemoglobin 12.5 g/dL (11.5-15.4); Immature Granulocytes % 0.2 % (0-4); Lymphocytes # 1.5 K/mcL (0.6-4.6); Lymphocytes % 25.5 %; Mean Corpuscular HGB Conc 31.8 g/dL (31.6-35.5); Mean Corpuscular Hemoglobin 29.8 pg (28.0-33.3); Mean Corpuscular Volume 93.8 fL (83.0-100.0); Mean Platelet Volume 10.7 fL (9.4-12.4); Monocytes # 0.5 K/mcL (0.0-1.3); Neutrophils # 3.8 K/mcL (1.6-8.9); Nucleated Red Blood Cells 0.3 /100 WBC (0); Platelet Count 160 K/mcL (140-400); Red Blood Count 4.19 M/mcL (3.82-4.97); Red Cell Distribution Width 13.7 % (11.5-14.5); Segmented Neutrophils % 63.2 %
[2018-01-03 07:30] LABS: BUN/Creatinine Ratio 32 (6-26); Blood Urea Nitrogen 26 mg/dL (8-23); Calcium 9.2 mg/dL (8.6-10.3); Carbon Dioxide 25 mEq/L (23-29); Chloride 107 mEq/L (98-107); Glucose 97 mg/dL (70-105); Osmolality,Calculated 295 (280-300); Potassium 3.6 mEq/L (3.5-5.1); Sodium 140 mEq/L (136-145); eGFR For African Americans > 60 (> 60); eGFR For Non-African Americans > 60 (> 60)
[2018-01-03] MEDS: Furosemide 40 MG/4 ML VIAL IVP SCH (09:58)
[2018-01-03] MEDS: Carbidopa/Levodopa 25/100 TABLET PO SCH ×4 (09:59→21:41)
[2018-01-03] MEDS: Aspirin 81 MG TAB.CHEW PO SCH (10:00)
--- NOTE | 2018-01-03 10:54 | Internal Med Progress Note ---
Date of Encounter: 01/03/18 Time of Encounter: 10:54 - Assessment and plan (1) Acute exacerbation of CHF (congestive heart failure) Current Visit: Yes Status: Acute Assessment and plan: Patient with no known history of CHF presented with shortness of breath, imaging showed Vascular congestion possible pulmonary edema likely pneumonia. Echocardiogram showed 01/02/18 with EF 40-45%, global LV systolic dysfx, mod LV diastolic dysfx, moderate mitral regurg. She has been on Lasix 20 mg IV twice a day with adequate response. She however continues to require oxygen. wean Oxygen as tolerated, and qualify for home oxygen. Qualifiers: Heart failure type: systolic Qualified Code(s): I50.23 - Acute on chronic systolic (congestive) heart failure (2) Hypertension Current Visit: Yes Status: Chronic Assessment and plan: controlled, continue cozaar and lopressor Qualifiers: Hypertension type: essential hypertension Qualified Code(s): I10 - Essential (primary) hypertension (3) Hypothyroidism Current Visit: Yes Status: Chronic Assessment and plan: continue synthroid Qualifiers: Hypothyroidism type: unspecified Qualified Code(s): E03.9 - Hypothyroidism , unspecified (4) Pneumonia Current Visit: Yes Status: Acute Assessment and plan: blood culture growing Strep sp in one bottle 01/01, sensitivities pending. repeat blood culture done 01/02 shows clearance. Has received Levaquin for 3 days. Continue the same as patient has established care as per blood culture a clinical improvement with this medication. Follow Final sensitivity Qualifiers: Pneumonia type: due to unspecified organism Laterality: unspecified laterality Lung location: unspecified part of lung Qualified Code(s): J18.9 - Pneumonia, unspecified organism (5) Pulmonary nodule Current Visit: Yes Status: Acute Assessment and plan: CT chest showed small bilateral pleural effusions, ill defined 13mm subpleural nodule on left upper lobe previously measured 1cm. patient states she was never a smoker but was to a "chain smoker" Plan: outpatient follow up with PCP for repeat imaging and monitoring. (6) DVT prophylaxis Current Visit: Yes Status: Acute Assessment and plan: heparin SQ (7) Parkinson disease Current Visit: Yes Status: Chronic Assessment and plan: continue Sinemet (8) Bacteremia Current Visit: Yes Status: Resolved Assessment and plan: due to strep sp 01/01/18 rpt blood culture from 01/02 is negative continue to monitor Sensitivity is pending continue levaquin - Subjective Interval history: seen and examined at bedside NO new complains Still requiring O2 We will wean/qualify for home O2 today Continue current management - Constitutional Vitals: Temp Pulse Resp BP Pulse Ox 97.8 F 52 15 147/62 100 01/03/18 06:46 01/03/18 06:46 01/03/18 06:46 01/03/18 06:46 01/03/18 06:46 General appearance: Present: A&O X 3, pleasant, no acute distress, answers questions appropriately - Head Head exam: Present: atraumatic, normocephalic - Eye Eye exam: Present: PERRL, conjuntiva pink, sclera anicteric Pupils: Present: PERRL - Neck Neck exam general surgery: Present: supple, trachea midline. Absent: lymphadenopathy - Respiratory Respiratory exam: Present: CTAB. Absent: accessory muscle use, rales, rhonchi, wheezes - Cardiovascular Cardiovascular exam: Present: RRR, +S1, +S2. Absent: diastolic murmur, gallop, rubs, systolic murmur - GI/Abdominal GI/Abdominal exam: Present: normal bowel sounds, soft, no peritoneal signs. Absent: distended, tenderness - Extremities Exam Extremities exam: Present: warm, radial pulses palpable and symmetrical. Absent : calf tenderness, cyanotic, pedal edema - Neurological Exam Neurological exam: Present: alert, CN II-XII intact, oriented X3, no focal deficits. Absent: pronater drift, facial droop, speech deficit - Skin Skin exam: Present: dry, intact Internal Medicine: Result - Labs CBC & Chem 7: 01/03/18 06:56 01/03/18 06:56 Labs: Short CBC 01/03/18 Range/Units 06:56 WBC 6.0 (4.3-11.1) K/mcL Hgb 12.5 (11.5-15.4) g/dL Hct 39.3 (35.3-44.9) % Plt Count 160 (140-400) K/mcL Neutrophils # 3.8 (1.6-8.9) K/mcL BMP 01/03/18 06:56 Sodium 140 Potassium 3.6 Chloride 107 Carbon Dioxide 25 BUN 26 H Creatinine 0.82 Glucose 97 Calcium 9.2 - ABG Interpretation ABG results: PT/INR, D-dimer PT 11.3 Seconds (9.4-12.1) 12/31/17 19:02 Consult Discharge Plan - Plan Referrals: Cornelius Smith MD [Primary Care Provider] - 01/09/18 1:30 pm
[2018-01-04] MEDS: *HR* Heparin 5,000 UNIT/ML VIAL SQ SCH ×2 (05:58→17:11)
[2018-01-04] MEDS ORDERED: Levofloxacin 750 MG/150 ML 750 MG/150 ML BAG IVPB SCH (09:00)
[2018-01-04] MEDS: Furosemide 20 MG TABLET PO SCH (09:21)
[2018-01-04] MEDS: Carbidopa/Levodopa 25/100 TABLET PO SCH ×4 (09:21→21:38)
[2018-01-04] MEDS: Aspirin 81 MG TAB.CHEW PO SCH (09:22)
--- NOTE | 2018-01-04 11:01 | Internal Med Progress Note ---
Date of Encounter: 01/04/18 Time of Encounter: 09:35 - Assessment and plan (1) Acute exacerbation of CHF (congestive heart failure) Current Visit: Yes Status: Acute Assessment and plan: Patient with no known history of CHF presented with shortness of breath, imaging showed Vascular congestion possible pulmonary edema likely pneumonia. Echocardiogram showed 01/02/18 with EF 40-45%, global LV systolic dysfx, mod LV diastolic dysfx, moderate mitral regurg. She has been on Lasix 20 mg IV twice a day with adequate response. Her oxygen saturation remained normal this morning overnight oxygen. She has a negative fluid balance of 475 mL. Continue current Lasix dosing, fluid restriction, daily weights check Qualifiers: Heart failure type: systolic Qualified Code(s): I50.23 - Acute on chronic systolic (congestive) heart failure (2) Hypertension Current Visit: Yes Status: Chronic Assessment and plan: controlled, continue cozaar and lopressor Qualifiers: Hypertension type: essential hypertension Qualified Code(s): I10 - Essential (primary) hypertension (3) Hypothyroidism Current Visit: Yes Status: Chronic Assessment and plan: continue synthroid Qualifiers: Hypothyroidism type: unspecified Qualified Code(s): E03.9 - Hypothyroidism , unspecified (4) Pneumonia Current Visit: Yes Status: Acute Assessment and plan: blood culture from January 01 grew streptococcus salivarius which is pansensitive. repeat blood culture done 01/02 shows clearance. Has received Levaquin for 4 days. Continue the same. Qualifiers: Pneumonia type: due to group B Streptococcus Laterality: unspecified laterality Lung location: unspecified part of lung Qualified Code(s): J15.3 - Pneumonia due to streptococcus, group B (5) Pulmonary nodule Current Visit: Yes Status: Acute Assessment and plan: CT chest showed small bilateral pleural effusions, ill defined 13mm subpleural nodule on left upper lobe previously measured 1cm. patient states she was never a smoker but was to a "chain smoker" outpatient follow up with PCP for repeat imaging and monitoring. (6) DVT prophylaxis Current Visit: Yes Status: Acute Assessment and plan: heparin SQ (7) Parkinson disease Current Visit: Yes Status: Chronic Assessment and plan: continue Sinemet (8) Bacteremia Current Visit: Yes Status: Resolved Assessment and plan: due to strep sp 01/01/18 rpt blood culture from 01/02 is negative continue to monitor continue levaquin - Subjective Interval history: 82-year-old female with Parkinson's disease was being managed for pneumonia, and hypoxia secondary to pneumonia. Patient has no new complaints. She is doing well without oxygen this morning. Patient has required maximum assistance for transfer from her bed, we have recommended a physical and occupational therapy evaluation. - Constitutional Vitals: Temp Pulse Resp BP Pulse Ox 98.1 F 52 18 130/55 95 01/04/18 07:37 01/04/18 07:37 01/04/18 07:37 01/04/18 07:37 01/04/18 10:46 General appearance: Present: A&O X 3, pleasant, no acute distress, answers questions appropriately - Head Head exam: Present: atraumatic, normocephalic - Eye Eye exam: Present: PERRL, conjuntiva pink, sclera anicteric Pupils: Present: PERRL - Neck Neck exam general surgery: Present: supple, trachea midline. Absent: lymphadenopathy - Respiratory Respiratory exam: Present: CTAB. Absent: accessory muscle use, rales, rhonchi, wheezes - Cardiovascular Cardiovascular exam: Present: RRR, +S1, +S2. Absent: diastolic murmur, gallop, rubs, systolic murmur - GI/Abdominal GI/Abdominal exam: Present: normal bowel sounds, soft, no peritoneal signs. Absent: distended, tenderness - Extremities Exam Extremities exam: Present: warm, radial pulses palpable and symmetrical. Absent : calf tenderness, cyanotic, pedal edema - Neurological Exam Neurological exam: Present: alert, CN II-XII intact, oriented X3, no focal deficits. Absent: pronater drift, facial droop, speech deficit - Skin Skin exam: Present: dry, intact Internal Medicine: Result - Labs CBC & Chem 7: 01/03/18 06:56 01/03/18 06:56 - ABG Interpretation ABG results: PT/INR, D-dimer PT 11.3 Seconds (9.4-12.1) 12/31/17 19:02 Consult Discharge Plan - Plan Instructions: Heart Failure (DC), Hypothyroidism (DC), Chronic Hypertension (DC ), Pneumonia (DC) Referrals: Cornelius Smith MD [Primary Care Provider] - 01/09/18 1:30 pm
[2018-01-05 05:44] LABS: BUN/Creatinine Ratio 36 (6-26); Blood Urea Nitrogen 28 mg/dL (8-23); Calcium 9.2 mg/dL (8.6-10.3); Carbon Dioxide 27 mEq/L (23-29); Chloride 107 mEq/L (98-107); Glucose 93 mg/dL (70-105); Osmolality,Calculated 295 (280-300); Potassium 3.8 mEq/L (3.5-5.1); Sodium 140 mEq/L (136-145); eGFR For African Americans > 60 (> 60); eGFR For Non-African Americans > 60 (> 60)
[2018-01-05] MEDS: *HR* Heparin 5,000 UNIT/ML VIAL SQ SCH (05:52)
[2018-01-05] MEDS: Carbidopa/Levodopa 25/100 TABLET PO SCH ×2 (09:12→12:06)
[2018-01-05] MEDS: Furosemide 20 MG TABLET PO SCH (09:13)
[2018-01-05 11:50] VITALS: BP 147/63
--- NOTE | 2018-01-05 12:21 | Physician Discharge Referral ---
ExtendedCare Referral Info Transfer To: SNF Provider in Charge: Edwar Josue Provider in Charge after Transfer: PCP Institutional Level of Care: Skilled - Diagnosis (1) Acute exacerbation of CHF (congestive heart failure) Priority: Primary Status: Acute (2) Hypertension Priority: Secondary Status: Chronic (3) Hypothyroidism Priority: Secondary Status: Chronic (4) Pneumonia Priority: Primary Status: Acute (5) Pulmonary nodule Priority: Primary Status: Acute (6) DVT prophylaxis Priority: Primary Status: Acute (7) Parkinson disease Priority: Secondary Status: Chronic (8) Bacteremia Priority: Primary Status: Resolved Prognosis: Fair Aware of Diagnosis: Patient Aware of Prognosis: Patient - Transfer Medications Home Medications: Aspirin 81 mg PO DAILY 01/04/17 [History] Docusate Sodium [Dok] 100 mg PO DAILY PRN 01/04/17 [History] Escitalopram Oxalate 5 mg PO DAILY 01/04/17 [History] Multivit-Min/FA/Lycopen/Lutein [Centrum Silver Tablet] 1 tab PO DAILY 01/04/17 [ History] Polyethylene Glycol 3350 [MiraLAX] 17 gm PO DAILY PRN 01/04/17 [History] Loratadine [Claritin] 10 mg PO DAILY 05/06/17 [History] Levothyroxine [Synthroid] 125 mcg PO DAILY 08/04/17 [History] Oxybutynin Chloride [Ditropan Xl] 10 mg PO DAILY 08/04/17 [History] Buspirone HCl [Buspar] 7.5 mg PO BID 01/01/18 [History] Carbidopa/Levodopa [Carbidopa-Levodopa 25-100 Tab] 1 tab PO QID 01/01/18 [ History] Carbidopa/Levodopa 25/100 [Sinemet 25/100] 1 each PO QID tablet 01/05/18 [Rx] Furosemide [Lasix] 20 mg PO DAILY tablet 01/05/18 [Rx] Losartan [Cozaar] 25 mg PO DAILY tablet 01/05/18 [Rx] Metoprolol [Lopressor] 12.5 mg PO BID tablet 01/05/18 [Rx] Potassium Chloride 10 meq PO DAILY tab.er.prt 01/05/18 [Rx] levoFLOXacin [Levaquin] 750 mg PO Q48H tablet 01/05/18 [Rx] Allergies/Adverse Reactions: 3 Allergy/AdvReac Type Severity Reaction Status Date / Time esomeprazole [From Nexium] Allergy Nausea Verified 08/04/17 13:48 powdered eggs Allergy Nausea Uncoded 01/01/18 04:29 - Respiratory Orders Smoking Cessation: Smoking cessation has been advised. For more information, call the [place] Tobacco Quit Line at 7-691-YVCL-NOW. - Advance Directives Code Status: DNR-Arrest/Don't Intubate - Diet Orders Cardiac CERTIFICATION: I certify that the transfer of the above named patient to an Extended Care Facility is necessary for the continuing treatment of the diagnosis listed. The above information is true and accurate reflection of patient's current condition. Confidential - Redisclosure prohibited without a patient's written consent.
--- NOTE | 2018-01-05 12:21 | Discharge Summary ---
Orders not resulted at time of discharge: Pending orders 01/01/18 11:18 Culture,Blood [BC] Stat 01/02/18 06:10 Culture,Blood [BC] AM 0400 Culture,Blood,Additional [BC] AM 0400 Date of Encounter: 01/05/18 Time of Encounter: 12:21 - Discharge Diagnosis (1) Acute exacerbation of CHF (congestive heart failure) Priority: Primary Status: Acute Qualifiers: Heart failure type: systolic Qualified Code(s): I50.23 - Acute on chronic systolic (congestive) heart failure (2) Hypertension Priority: Secondary Status: Chronic Qualifiers: Hypertension type: essential hypertension Qualified Code(s): I10 - Essential (primary) hypertension (3) Hypothyroidism Priority: Secondary Status: Chronic Qualifiers: Hypothyroidism type: unspecified Qualified Code(s): E03.9 - Hypothyroidism , unspecified (4) Pneumonia Priority: Primary Status: Acute Qualifiers: Pneumonia type: due to group B Streptococcus Laterality: unspecified laterality Lung location: unspecified part of lung Qualified Code(s): J15.3 - Pneumonia due to streptococcus, group B (5) Pulmonary nodule Priority: Primary Status: Acute (6) DVT prophylaxis Priority: Primary Status: Acute (7) Parkinson disease Priority: Secondary Status: Chronic (8) Bacteremia Priority: Primary Status: Resolved Hospital course: Ms. Leon is a 82 year old female with medical history of hypertension, hypothyroidism, Parkinson's disease. The patient was admitted for management of acute exacerbation of CHF, streptococcal bacteremia, strep pneumonia. Patient with no known history of CHF presented with shortness of breath, imaging showed Vascular congestion possible pulmonary edema likely pneumonia. Echocardiogram showed 01/02/18 with EF 40-45%, global LV systolic dysfx, mod LV diastolic dysfx, moderate mitral regurg. She has been on Lasix 20 mg IV twice a day with adequate response. She will be discharged on oral lasix Her oxygen saturation remained normal blood culture from January 01 grew streptococcus salivarius which is pansensitive. repeat blood culture done 01/02 shows clearance. She has been on levaquin since admission with response, she is stable to be discharged to the nursing facility to complete total of 14 days due to bacteremia. There was an incidental finding of pulmonary nodule which should be followed up with primary care physician as outpatient. She was seen and evaluated at the bedside this morning, she has no more shortness of breath, high edema has resolved, breathing has improved and she has remained hemodynamically stable. She is currently stable to be discharged to [facility] facility. Other chronic medical conditions remained stable throughout hospitalization. Discharge discussed with: patient, family, nurse, social work, case management - Time Spent with Patient Total time spent providing and/or coordinating discharge services: Greater than 30 minutes - Discharge Medications Home Medications: Aspirin 81 mg PO DAILY 01/04/17 [History] Docusate Sodium [Dok] 100 mg PO DAILY PRN 01/04/17 [History] Escitalopram Oxalate 5 mg PO DAILY 01/04/17 [History] Multivit-Min/FA/Lycopen/Lutein [Centrum Silver Tablet] 1 tab PO DAILY 01/04/17 [ History] Polyethylene Glycol 3350 [MiraLAX] 17 gm PO DAILY PRN 01/04/17 [History] Loratadine [Claritin] 10 mg PO DAILY 05/06/17 [History] Levothyroxine [Synthroid] 125 mcg PO DAILY 08/04/17 [History] Oxybutynin Chloride [Ditropan Xl] 10 mg PO DAILY 08/04/17 [History] Buspirone HCl [Buspar] 7.5 mg PO BID 01/01/18 [History] Carbidopa/Levodopa [Carbidopa-Levodopa 25-100 Tab] 1 tab PO QID 01/01/18 [ History] Carbidopa/Levodopa 25/100 [Sinemet 25/100] 1 each PO QID tablet 01/05/18 [Rx] Furosemide [Lasix] 20 mg PO DAILY tablet 01/05/18 [Rx] Losartan [Cozaar] 25 mg PO DAILY tablet 01/05/18 [Rx] Metoprolol [Lopressor] 12.5 mg PO BID tablet 01/05/18 [Rx] Potassium Chloride 10 meq PO DAILY tab.er.prt 01/05/18 [Rx] levoFLOXacin [Levaquin] 750 mg PO Q48H tablet 01/05/18 [Rx] Allergies/Adverse Reactions: 3 Allergy/AdvReac Type Severity Reaction Status Date / Time esomeprazole [From Nexium] Allergy Nausea Verified 08/04/17 13:48 powdered eggs Allergy Nausea Uncoded 01/01/18 04:29 Date of admission: 12/31/17 23:11 Primary care physician: Cornelius Smith MD Consults: 01/03/18 12:06 Consult to Physical Therapy [CONS] Routine Comment: Evaluate, develop and implement POC Reason for Consult: Per nursing, patient a 2 person assist; weakness; poss rehab at discharge 01/03/18 12:08 Consult to Occupational Therapy [CONS] Routine Comment: Evaluate, develop and implement POC Reason for Consult: Per nursing patient is a 2 person assist; weakness; possible rehab at discharge 01/04/18 08:32 Consult to [facility] [CONS] Routine Reason for SW Consult: Per patient would like rehab at discharge; wants [facility]; PT/OT consulted Discharging clinician: Jamie Josue Anticipated date of discharge: 01/05/18 - Constitutional Vitals: Temp Pulse Resp BP Pulse Ox 98.2 F 55 17 147/63 99 01/05/18 11:48 01/05/18 11:48 01/05/18 11:48 01/05/18 11:48 01/05/18 11:48 General appearance: Present: A&O X 3, pleasant, no acute distress, answers questions appropriately - Patient Status Disposition: Transfer SNF Condition: Good Functional capacity at discharge: independent ambulation Overall status at discharge: patient is back to baseline - Discharge Instructions Instructions: Heart Failure (DC), Hypothyroidism (DC), Chronic Hypertension (DC ), Pneumonia (DC) Follow Up With: Cornelius Smith MD [Primary Care Provider] - 01/09/18 1:30 pm - Diet and Activity Activity: resume usual activities as tolerated Diet: low salt diet
[2018-01-05] MEDS: Aspirin 81 MG TAB.CHEW PO SCH (12:55)
--- NOTE | 2018-01-06 08:58 | Electrocardiograph Report ---
[place] [id number] Test Date: 2017-12-31 Pat Name: Shantal Leon Department: 104 Room: 2N5 Gender: F [employer]: : [id number] Requested By: Jeimy Rodriguez Order Number: [id number] Reading MD: Eduardo Sierra DO Measurements Intervals [place] Rate: 79 P: 59 PA: 184 QRS: 4 QRSD: 96 T: 76 QT: 389 QTc: 424 Interpretive Statements SINUS RHYTHM LEFT ATRIAL ENLARGEMENT POSSIBLE RIGHT VENTRICULAR CONDUCTION DELAY NONSPECIFIC T-WAVE ABNORMALITY Electronically Signed On 01-06-2018 8:57:30 EST by Eduardo Sierra DO
[2018-01-06] MEDS ORDERED: levoFLOXacin 750 MG TABLET PO SCH (09:00)
== END 2018-01-05 14:19 | DRG 291 ==
LOC: EMEROO 18:40 → 2NENU 18:40 → SUATTDRO 23:11
PROVIDERS: ADMIT Internal Medicine; ATTEND Internal Medicine

== ENCOUNTER 2020-12-19 22:08 | Observation (INO) ==
[2020-12-20] MEDS ORDERED: Acetaminophen 325 MG TABLET PO PRN (02:39)
[2020-12-20] MEDS ORDERED: *HR* Promethazine 25 MG/ML VIAL IM PRN (02:39)
[2020-12-20] MEDS ORDERED: Naloxone 0.4 MG/ML INJ IVP PRN (02:39)
[2020-12-20] MEDS ORDERED: Ondansetron 4 MG/2 ML VIAL IVP PRN (02:39)
[2020-12-20] MEDS: Ringers Solution, Lactated 1,000 ML IVC SCH ×2 (03:05→21:23)
[2020-12-20 04:46] LABS: Prothrombin Time 11.9 Seconds (9.4-12.1)
[2020-12-20 05:08] LABS: Alanine Aminotransferase < 3 Units/L (7-52); Albumin 2.8 g/dL (3.5-5.7); Albumin/Globulin Ratio 1.2 (1.1-2.2); Alkaline Phosphatase 59 Units/L (34-104); Aspartate Amino Transferase 11 Units/L (13-39); BUN/Creatinine Ratio 30 (6-26); Bilirubin,Total 0.5 mg/dL (0.3-1.0); Blood Urea Nitrogen 18 mg/dL (8-23); Calcium 8.3 mg/dL (8.6-10.3); Carbon Dioxide 24 mEq/L (23-29); Chloride 107 mEq/L (98-107); Globulin 2.4 g/dL (2.4-3.5); Glucose 87 mg/dL (70-105); Magnesium 1.8 mg/dL (1.6-2.6); Osmolality,Calculated 285 (280-300); Phosphorous 2.1 mg/dL (2.7-4.5); Potassium 3.5 mEq/L (3.5-5.1); Sodium 137 mEq/L (136-145); Total Protein 5.2 g/dL (6.4-8.9); eGFR For African Americans > 60 (> 60); eGFR For Non-African Americans > 60 (> 60)
[2020-12-20] MEDS: *HR* Heparin 5,000 UNIT/ML VIAL SQ SCH ×3 (05:17→21:22)
[2020-12-20 07:52] LABS: Hemoglobin 12.9 g/dL (11.5-15.4); Red Cell Distribution Width 13.7 % (11.5-14.5)
[2020-12-20 07:54] LABS: Basophils % 0.5 %; Eosinophils # 0.1 K/mcL (0.0-0.6); Eosinophils % 1.3 %; Hematocrit 38.5 % (35.3-44.9); Immature Granulocytes % 0.6 % (0-4); Immature Platelets 2.4 % (1.1-6.1); Lymphocytes # 1.6 K/mcL (0.6-4.6); Lymphocytes % 25.7 %; Mean Corpuscular HGB Conc 33.5 g/dL (31.6-35.5); Mean Corpuscular Hemoglobin 30.4 pg (28.0-33.3); Mean Corpuscular Volume 90.6 fL (83.0-100.0); Mean Platelet Volume 10.8 fL (9.4-12.4); Monocytes # 0.5 K/mcL (0.0-1.3); Monocytes % 8.3 %; Platelet Count 188 K/mcL (140-400); Red Blood Count 4.25 M/mcL (3.82-4.97); Segmented Neutrophils % 63.6 %; White Blood Count 6.3 K/mcL (4.3-11.1)
[2020-12-20] MEDS: Piperacillin/Tazobactam 3.375 GM in 0.9 % Sodium Chloride Mini Bag 100 ML IVPB SCH ×2 (08:43→17:12)
[2020-12-20] MEDS: Carbidopa/Levodopa 25/100 TABLET PO SCH ×2 (17:12→21:23)
[2020-12-21] MEDS: Piperacillin/Tazobactam 3.375 GM in 0.9 % Sodium Chloride Mini Bag 100 ML IVPB SCH ×2 (00:09→08:50)
[2020-12-21 03:57] LABS: Basophils % 0.4 %; Eosinophils # 0.1 K/mcL (0.0-0.6); Eosinophils % 1.3 %; Hematocrit 36.3 % (35.3-44.9); Hemoglobin 11.7 g/dL (11.5-15.4); Immature Granulocytes % 0.7 % (0-4); Lymphocytes # 1.6 K/mcL (0.6-4.6); Lymphocytes % 30.1 %; Mean Corpuscular HGB Conc 32.2 g/dL (31.6-35.5); Mean Corpuscular Hemoglobin 30.3 pg (28.0-33.3); Mean Platelet Volume 9.9 fL (9.4-12.4); Monocytes # 0.5 K/mcL (0.0-1.3); Monocytes % 8.3 %; Neutrophils # 3.2 K/mcL (1.6-8.9); Platelet Count 196 K/mcL (140-400); Red Blood Count 3.86 M/mcL (3.82-4.97); Red Cell Distribution Width 13.9 % (11.5-14.5); Segmented Neutrophils % 59.2 %; White Blood Count 5.4 K/mcL (4.3-11.1)
[2020-12-21 04:15] LABS: BUN/Creatinine Ratio 18 (6-26); Blood Urea Nitrogen 14 mg/dL (8-23); Calcium 8.2 mg/dL (8.6-10.3); Carbon Dioxide 25 mEq/L (23-29); Chloride 110 mEq/L (98-107); Glucose 89 mg/dL (70-105); Magnesium 1.8 mg/dL (1.6-2.6); Osmolality,Calculated 292 (280-300); Phosphorous 2.5 mg/dL (2.7-4.5); Potassium 3.5 mEq/L (3.5-5.1); Sodium 141 mEq/L (136-145); eGFR For African Americans > 60 (> 60); eGFR For Non-African Americans > 60 (> 60)
[2020-12-21] MEDS: *HR* Heparin 5,000 UNIT/ML VIAL SQ SCH (05:30)
[2020-12-21] MEDS: Carbidopa/Levodopa 25/100 TABLET PO SCH (08:51)
[2020-12-21] MEDS ORDERED: Aspirin 81 MG TAB.CHEW PO SCH (09:00)
[2020-12-21] MEDS ORDERED: (Mirabegron [Myrbetriq] 25 MG) PO SCH (09:00)
[2020-12-21] MEDS ORDERED: Cholecalciferol (D-3) 1,000 UNIT (25MCG) TABLET PO SCH (09:00)
[2020-12-21 10:48] VITALS: BP 129/75
[2020-12-21 12:14] LABS: Adenovirus Not Detected (Not Detect); Bordetella Pertussis Not Detected (Not Detect); Chlamydophila pneumoniae Not Detected (Not Detect); Coronavirus 229E Not Detected (Not Detect); Coronavirus HKU1 Not Detected (Not Detect); Coronavirus NL63 Not Detected (Not Detect); Coronavirus OC43 Not Detected (Not Detect); Human Metapneumovirus Not Detected (Not Detect); Human Rhinovirus/Enterovirus Not Detected (Not Detect); Influenza A Subtype 2009 H1 Not Detected (Not Detect); Influenza B Not Detected (Not Detect); Mycoplasma pneumoniae Not Detected (Not Detect); Parainfluenza Virus 1 Not Detected (Not Detect); Parainfluenza Virus 2 Not Detected (Not Detect); Parainfluenza Virus 3 Not Detected (Not Detect); Parainfluenza Virus 4 Not Detected (Not Detect); Respiratory Syncytial Virus Not Detected (Not Detect); SARS-CoV-2 Not Detected (Not Detect)
== END 2020-12-21 14:36 ==
LOC: 3BNU → SUATTDRO 12-20 02:26
PROVIDERS: ADMIT Internal Medicine; ATTEND Internal Medicine

== ENCOUNTER 2021-02-09 10:27 | Observation (INO) ==
[2021-02-09] MEDS ORDERED: Isovue-370 500 ML BOTTLE IVP ONE (12:55)
[2021-02-09 13:46] LABS: Alanine Aminotransferase 3 Units/L (7-52); Albumin 3.5 g/dL (3.5-5.7); Albumin/Globulin Ratio 1.2 (1.1-2.2); Alkaline Phosphatase 79 Units/L (34-104); Aspartate Amino Transferase 20 Units/L (13-39); BUN/Creatinine Ratio 24 (6-26); Bilirubin,Direct 0.1 mg/dL (0.0-0.2); Bilirubin,Indirect 0.3 mg/dL (0.0-1.0); Bilirubin,Total 0.4 mg/dL (0.3-1.0); Blood Urea Nitrogen 17 mg/dL (8-23); Calcium 9.1 mg/dL (8.6-10.3); Carbon Dioxide 27 mEq/L (23-29); Chloride 106 mEq/L (98-107); Glucose 80 mg/dL (70-105); Lipase 14 Units/L (11-82); Osmolality,Calculated 293 (280-300); Potassium 3.2 mEq/L (3.5-5.1); Sodium 141 mEq/L (136-145); Total Protein 6.5 g/dL (6.4-8.9); eGFR For African Americans > 60 (> 60); eGFR For Non-African Americans > 60 (> 60)
[2021-02-09 13:58] LABS: Basophils % 0.3 %; Eosinophils # 0.1 K/mcL (0.0-0.6); Eosinophils % 0.7 %; Hematocrit 42.3 % (35.3-44.9); Hemoglobin 13.2 g/dL (11.5-15.4); Immature Granulocytes % 0.2 % (0-4); Lymphocytes # 2.5 K/mcL (0.6-4.6); Lymphocytes % 27.6 %; Mean Corpuscular HGB Conc 31.2 g/dL (31.6-35.5); Mean Corpuscular Hemoglobin 30.9 pg (28.0-33.3); Mean Corpuscular Volume 99.1 fL (83.0-100.0); Mean Platelet Volume 9.9 fL (9.4-12.4); Monocytes # 0.6 K/mcL (0.0-1.3); Monocytes % 6.5 %; Neutrophils # 5.9 K/mcL (1.6-8.9); Platelet Count 228 K/mcL (140-400); Red Blood Count 4.27 M/mcL (3.82-4.97); Red Cell Distribution Width 14.7 % (11.5-14.5); Segmented Neutrophils % 64.7 %; White Blood Count 9.1 K/mcL (4.3-11.1)
[2021-02-09 14:39] LABS: Bacteria,Urine Few per hpf (None-Few); Bilirubin,Urine Negative (Negative); Blood,Urine Negative (Negative); Clarity,Urine Turbid (Clear); Color,Urine Yellow (Yellow); Glucose,Urine (UA) Normal (Normal); Ketones,Urine Negative (Negative); Leukocyte Esterase,Urine Large (Negative); Mucus,Urine Few per lpf (None-Few); Nitrite,Urine Positive (Negative); Protein,Urine Trace mg/dL (Neg-Trace); Renal Epithelial Cells,Urine Few per hpf (None-Few); Specific Gravity,Urine 1.017 (1.010-1.025); Squamous Epithelial Cell,Urine Few per hpf (None-Few); Transitional Epi Cells,Urine Few per hpf (None-Few); Uric Acid Crystals,Urine Present; Urobilinogen,Urine Normal (Normal); WBC,Urine TNTC per hpf (0-3)
[2021-02-09] MEDS ORDERED: MetroNIDAZOLE 500 MG/100 ML 500 MG/100 ML BAG IVPB ONE (15:04)
[2021-02-09] MEDS ORDERED: 0.9 % Sodium Chloride 1,000 ML IVC SCH (15:15)
[2021-02-09] MEDS ORDERED: Ondansetron 4 MG/2 ML VIAL IVP PRN (16:56)
[2021-02-09] MEDS ORDERED: Naloxone 0.4 MG/ML INJ IVP PRN (16:56)
[2021-02-09] MEDS ORDERED: Melatonin 3 MG TABLET PO PRN (16:56)
[2021-02-09] MEDS ORDERED: Ringers Solution, Lactated 1,000 ML IVC SCH (17:00)
[2021-02-09] MEDS ORDERED: SODIUM CHLORIDE/NAHCO3/KCL/PEG 4,000 ML SOLN.RECON PO ONE (17:00)
[2021-02-09] MEDS ORDERED: Acetaminophen 325 MG TABLET PO PRN (20:34)
[2021-02-10] MEDS: MetroNIDAZOLE 500 MG/100 ML 500 MG/100 ML BAG IVPB SCH ×3 (01:36→17:17)
[2021-02-10 05:48] LABS: Basophils % 0.6 %; Eosinophils # 0.1 K/mcL (0.0-0.6); Eosinophils % 1.6 %; Hematocrit 37.3 % (35.3-44.9); Immature Granulocytes % 0.2 % (0-4); Lymphocytes # 1.5 K/mcL (0.6-4.6); Lymphocytes % 29.1 %; Mean Corpuscular HGB Conc 31.1 g/dL (31.6-35.5); Mean Corpuscular Hemoglobin 30.9 pg (28.0-33.3); Mean Corpuscular Volume 99.2 fL (83.0-100.0); Mean Platelet Volume 9.8 fL (9.4-12.4); Monocytes # 0.4 K/mcL (0.0-1.3); Monocytes % 8.3 %; Platelet Count 199 K/mcL (140-400); Red Blood Count 3.76 M/mcL (3.82-4.97); Red Cell Distribution Width 14.6 % (11.5-14.5); Segmented Neutrophils % 60.2 %; White Blood Count 5.1 K/mcL (4.3-11.1)
[2021-02-10 05:51] LABS: Hemoglobin 11.6 g/dL (11.5-15.4)
[2021-02-10 06:08] LABS: BUN/Creatinine Ratio 16 (6-26); Blood Urea Nitrogen 10 mg/dL (8-23); Calcium 8.4 mg/dL (8.6-10.3); Carbon Dioxide 29 mEq/L (23-29); Chloride 110 mEq/L (98-107); Glucose 97 mg/dL (70-105); Osmolality,Calculated 295 (280-300); Potassium 3.2 mEq/L (3.5-5.1); Sodium 143 mEq/L (136-145); eGFR For African Americans > 60 (> 60); eGFR For Non-African Americans > 60 (> 60)
[2021-02-10] MEDS ORDERED: Potassium Chloride 40 MEQ, Lidocaine 1% 2 ML in 0.9 % Sodium Chloride 500 ML IVPB ONE (07:59)
[2021-02-10] MEDS ORDERED: Cholecalciferol (D-3) 1,000 UNIT (25MCG) TABLET PO SCH (09:00)
[2021-02-10] MEDS ORDERED: (Mirabegron [Myrbetriq] 25 MG Tab.Er.24h) PO SCH (09:00)
[2021-02-10] MEDS ORDERED: Aspirin 81 MG TAB.CHEW PO SCH (09:00)
[2021-02-10 11:54] VITALS: BP 141/81
[2021-02-10] MEDS ORDERED: *HR* Dextrose 50 % in Water (Vial) 50 ML VIAL IVP ONE (13:59)
[2021-02-10] MEDS ORDERED: Carbidopa/Levodopa 25/100 TABLET PO SCH (15:00)
[2021-02-10] MEDS ORDERED: *HR* Heparin 5,000 UNIT/ML VIAL SQ SCH (18:00)
[2021-02-10] MEDS ORDERED: *HR* Propofol 500 MG/50 ML BOTTLE IVP ONE (19:38)
[2021-02-10] MEDS ORDERED: Lidocaine -MPF 2% 5 ML VIAL SQ ONE (19:38)
[2021-02-10] MEDS ORDERED: Cholestyramine 4 GM POWD.PACK PO SCH (21:00)
== END 2021-02-10 19:39 ==
LOC: 3ANU 10:27 → EMEROOARM 10:27 → 3ANU 17:47
PROVIDERS: ADMIT General Practice; ATTEND General Practice